=== PATIENT | female | born 1955 | race Caucasian/White ===

== ENCOUNTER 2021-07-03 15:16 | Inpatient (IN) | payer SELFPAY ==
[2021-07-03] VITALS (14 sets, daily range): BP systolic 78–103; BP diastolic 55–75; PULSE 61–159; RESP 17–37; TEMP 36.3; O2SAT 94–98; BMI 25.5
--- NOTE | 2021-07-03 15:54 | ECG_ITS ---
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: : 1955 Requested By: Placido Obregon Order Number: [id number] Reading MD: VIOLETA CARTWRIGHT Measurements Intervals [place] Rate: 126 P: 7 [place]: 129 QRS: 21 QRSD: 92 T: 11 QT: 313 QTc: 453 Interpretive Statements SINUS TACHYCARDIA ST ELEVATION, CONSIDER ANTERIOR INJURY [MARKED ST ELEVATION W/O NORMALLY INFLECTED T-WAVE IN V2-V5] ST ELEVATION, CONSIDER INFERIOR INJURY [MARKED ST ELEVATION W/O NORMALLY INFLECTED T-WAVE IN II/aVF] ACUTE VT No previous ECG available for comparison Electronically Signed On 07-03-2021 19:57:22 SUPERVISOR ELECTRONICS INSPECTION by VIOLETA CARTWRIGHT [id number]
[2021-07-03] MEDS: aspirin 81 mg Chew Tablet 324 MG PO (16:09)
[2021-07-03 16:10] LABS: Basophils # 0.1 10^3/uL (0.0-0.1); Basophils % 0.3 %; Eosinophils % 0.2 %; Hematocrit 41.3 % (37.0-47.0); Hemoglobin 14.2 g/dL (11.5-15.3); Mean Corpuscular HGB Conc 34.4 g/dL (30.0-36.0); Mean Corpuscular Hemoglobin 30.1 pg (28.0-34.0); Mean Corpuscular Volume 87.7 fl (81-99); Monocytes # 0.6 10^3/uL (0.2-0.9); Monocytes % 2.8 %; Neutrophils # 17.54 10^3/uL (1.8-7.7); Neutrophils % 89.3 %; Nucleated Red Blood Cells % 0 %; Platelet Count 155 10^3/cmm (130-400); Red Blood Count 4.71 10^6/uL (4.1-5.3); Red Cell Distribution Width 12.7 % (12.1-15.1); White Blood Count 19.7 10^3/uL (4.0-10.0)
[2021-07-03] MEDS: morphine 4 mg/mL SDV 1 mL IVP ×2 (16:10→16:46)
[2021-07-03] MEDS: ticagrelor 90 mg Tablet 180 MG PO (16:10)
[2021-07-03] MEDS: heparin 5,000 unit/mL INJ 1 mL 4000 UNIT IVP (16:10)
--- NOTE | 2021-07-03 16:10 | XACV_ITS ---
Gender: Female : 1955 Any Known Allergies: No known allergies Exam Priority: Routine Procedure(s): Procedure Description: Diagnostic procedure Procedure Description: Coronary Angiography Diagnostic Cath Status: Emergency Diagnostic Findings * Indication: 66-year-old woman presented with not feeling well for 3 days. Had a febrile episode about 3 days ago also. Complaining of chest pain which is substernal. Borderline ST elevations are noted on the EKG. She is not a good historian, however given her chest pain history and ST changes on EKG, she was emergently brought to the Order Taker for coronary angiogram. * No disease noted in the Left Main, Left Anterior Descending, Right, or Circumflex coronary arteries. * Coronary angiography shows right dominance. Conclusions 1. Possible pericarditis/sepsis. Will need work-up for it. 2. No disease noted in the Left Main, Left Anterior Descending, Right, or Circumflex coronary arteries. Recommendations * Transfer to CSU. * Tele monitoring. * Work up for pericarditis vs sepsis per medicine team. * Order echocardiogram. Interventional RX Recommendation: medical therapy and/or counseling Diagnostic RX Recommendation: medical therapy and/or counseling Pressures Phase:Rest AO : 76 / 44 ( 55 ) @ 2:57:00 PM 79 / 38 ( 53 ) @ 2:57:00 PM 67 / 30 ( 45 ) @ 2:57:00 PM LV : 94 / -16 / 5 @ 2:57:00 PM 93 / -16 / 5 @ 2:57:00 PM Valves Phase:DefaultPhase AV : 17.0 @ 5:09:16 PM AV Mean Gradient: 15.0 @ 5:09:16 PM Clinical Evaluation EBL: 5mL-10mL Procedural Details Procedure Consent Obtained. Admit Source: Emergency department. Pre-Procedure Time Out. Identified patient by full name and date of as verbalized by the patient/guarantor. Does the consent match the physician's order: Yes. Accurate & Complete Informed Consent: Yes. Inpatient/Outpatient History & Physical on Chart: Yes. Visualize and Verify Site with Patient/Guarantor: N/A. Relevant Radiology Images available: N/A. Pre-op teaching completed and patient verbalized understanding. The risks, benefits, and alternatives of sedation and/or procedure were discussed by physician. The patient agrees to continue. Procedure started. Order Taker Indications: Worsening Angina, STEMI. [facility] Clinical Fraility Score: 4: Vulnerable. Chest Pain Symptom Assessment: Atypical Angina. Correct patient, site and procedure confirmed by cath team. Current diagnosis: STEMI. PERRLA. Strong, equal hand watch supervisor bilaterally. Lungs clear x 5 lobes. IV Site on Arrival: 20 gauge in the right anticubital. IV Fluids: 0.9% NaCl at KVO. 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 Pre Procedural Pulses: bilateral dorsalis pedis was 2+. Oxygen started at 2liters/min via nasal canula. right groin was prepped with chloroprep then draped in the usual sterile fashion. Physician notified. Baseline sample Acquired. HR: 77 BPM. Physician arrived. Physician scrubbed in. Immediate Pre-Procedure Time Out. Correct Patient: Yes; Correct Procedure: Yes; Correct Site: Yes; Correct Patient Position: Yes; Correct Supplies: Yes; Dried Flammable Prep: N/A; Blood Products Available: N/A;. Lidocaine 1% infiltrated to the right groin. Arterial access obtained with micropuncture set. Wire and needle out. Difficult access to R groin. Approach switched to L groin. Lidocaine 1% infiltrated to the left groin. left groin was prepped with chloroprep then draped in the usual sterile fashion. Arterial access obtained with micropuncture set. A 5 italian JL4 catheter in over wire. Multiple views taken of left coronary artery. Catheter out. A 5 italian JR4 catheter in over wire. Multiple views taken of right coronary artery. EDP Sample taken: LV 94/-17,5; HR: 137 BPM; SpO2: 100%. Pullback taken: LV 93/-17,5; AO 76/44(55); Mean: 15mmHg, Peak to Peak: 17mmHg, SEP: 13sec/min; HR: 138 BPM; SpO2: 100%. A Suture was successful obtaining hemostatsis at the Left Femoral artery insertion site. Physician scrubbed out. Post Procedure: Pulses reassessed and unchanged. PERRLA. Strong, equal hand watch supervisor bilaterally. No VTE prophylaxis required. Medication's Wasted: Lidocaine 1% = 12 mL. Medication's Wasted: Heparin = 1000 u. Medication's Wasted: Other = Versed 1 mg. Medication's Wasted: Other = Fentanyl 100 mcg. Total IV fluids: 250 mL. Post-op diagnosis: Angina. Complications: Non obstructive CAD. Estimated blood loss: 5mL-10mL. Responsiveness - Normal response to verbal stimuli; alert and oriented, PERRLA. Airway - Unaffected, no intervention required; spontaneous ventilation. Circulation: W/N/L, pulses unchanged. Nausea/Vomiting: No. Procedure completed. Patient transferred by bed to 1st floor. Vital chart was stopped. Access Site Site: Left Femoral artery Sheath Size: 6 Fr Hemostasis Method: Suture Hemostasis Success: Successful Procedure Medications Start: 4:46 PM Stop: 4:46 PM Medication: Versed Amount: 1 mg Route: I.V. Start: 4:54 PM Stop: 4:54 PM Medication: 0.9% Saline Amount: 250 ml Route: I.V. bolus I, the attending physician, have reviewed and verified all procedure medications. Yes, all medications given per verbal order Report Signatures Finalized by Toby Howell MD on 07/18/2021 07:16 AM
--- NOTE | 2021-07-03 16:11 | ED_ITS ---
HPI - Chest Pain General: Chief Complaint: Shortness of Breath/Dyspnea Stated Complaint: LETHARGIC/SOB/COUGH/FEVER Time Seen by Provider: 07/03/21 16:11 History of Present Illness: HPI narrative: 66-year-old female sent to the emergency room from the cardiac clinic. She complaining of chest pain evidently has been going on waxing and waning for several days markedly worse today. On arrival here initial EKG showed acute ST elevation [place]. She is complaining of shortness of breath generalized weakness. She previously has a history of cancer MD complaint: chest pain Onset (ago): day(s) Timing of current episode: episodic and increasing Onset: during rest Pain location: substernal and left chest Pain radiation: left arm Severity: severe Quality: aching and heaviness Relieving factors: nothing Exacerbating factors: nothing Associated symptoms: Reports dyspnea, leg edema and sense of impending doom; Deny abdominal pain, diaphoresis, fever(s), nausea, palpitations, syncope or vomiting Treatment prior to arrival: none Review of Systems Const: Denies: fever(s) or diaphoresis ENMT: Denies: throat pain, ear or mastoid pain, nasal discharge or nasal congestion Card: Denies: palpitations or syncope Resp: Reports: dyspnea GI: Denies: abdominal pain, nausea or vomiting : Denies: flank pain, difficulty voiding, dysuria, urinary frequency or urinary urgency Skin/Breast: Denies: rash or pruritus Physical Exam Const: ORIENTATION/CONSCIOUSNESS: Yes awake, Yes oriented to person, Yes oriented to place and Yes oriented to time HENMT: COMMON NORMALS: normocephalic, atraumatic and hearing grossly normal bilaterally HEAD & SCALP: normocephalic and atraumatic Neck/C-Spine: COMMON NORMALS: no JVD Resp: COMMON NORMALS: normal respiratory effort, No retractions, No use of accessory muscles and clear to auscultation bilaterally AUSCULTATION: clear to auscultation bilaterally Cardio: COMMON NORMALS: no JVD, regular rate, regular rhythm and No murmurs present (Cardio) RATE: regular rate RHYTHM: regular rhythm GI: COMMON NORMALS: Soft to palpation and No hepatosplenomegaly present AUSCULTATION: Yes normoactive bowel sounds PALPATION: Yes Soft to palpation, No Tenderness to palpation present (GI), No Guarding due to palpation present (GI) and Yes No hepatosplenomegaly present Extremity: COMMON NORMALS: normal to inspection, capillary refill normal, no clubbing, cyanosis or edema, no calf tenderness and no pedal edema Neuro: SENSORIUM/ORIENTATION: Yes oriented to person, Yes oriented to place and Yes oriented to time Skin: COMMON NORMALS: no rashes or lesions noted GENERAL SKIN EXAM: no rashes or lesions noted Course Vital Signs: Vital signs: Vital Signs Temperature 97.4 F L 07/03/21 15:37 Pulse Rate 131 H 07/03/21 21:25 Respiratory Rate 22 H 07/03/21 21:25 Blood Pressure 102/75 07/03/21 19:00 Pulse Oximetry 94 07/03/21 21:25 MDM - Chest Pain MDM Narrative: Medical decision making narrative: Initial EKG shows acute ST elevation discussed Dr. Cordero who is on the department he agrees he is interviewed the patient he feels her chest pain is worsening and able to go ahead and take her to Program Director/Air Personality she has been given antiplatelet therapy aspirin and heparin. Lab Data: Labs: Lab Results 07/03/21 07/03/21 07/03/21 16:00 16:00 16:00 WBC 19.7 10^3/uL H 10 ^3/uL (4.0-10.0) RBC 4.71 10^6/uL 10^6 /uL (4.1-5.3) Hgb 14.2 g/dL g/dL (11.5-15.3) Hct 41.3 % % (37.0-47.0) MCV 87.7 fl fl (81-99) MCH 30.1 pg pg (28.0-34.0) MCHC 34.4 g/dL g/dL (30.0-36.0) RDW 12.7 % % (12.1-15.1) Plt Count 155 10^3/cmm 10^3 /cmm (130-400) MPV 13.7 fL H fL (7.4-10.4) Neut % (Auto) 89.3 % % Lymph % (Auto) 5.0 % % [place] % (Auto) 2.8 % % Eos % (Auto) 0.2 % % Baso % (Auto) 0.3 % % Neut # (Auto) 17.54 10^3/uL H 1 0^3/uL (1.8-7.7) Lymph # (Auto) 1.0 10^3/uL 10^3/ uL (0.8-4.8) [place] # (Auto) 0.6 10^3/uL 10^3/ uL (0.2-0.9) Eos # (Auto) 0.0 10^3/uL 10^3/ uL (0.0-0.8) Baso # (Auto) 0.1 10^3/uL 10^3/ uL (0.0-0.1) Nucleated RBC % (a uto) 0 % % Nucleated RBCs # 0.0 /100WBC /100W BC Sodium 125 mmol/L L mmol /L (136-145) Potassium 4.0 mmol/L mmol/L (3.5-5.1) Chloride 88 mmol/L L mmol/ L (98-107) Carbon Dioxide 12 mmol/L L mmol/ L (22-29) Anion Gap 29.0 H (5-19) BUN 84 mg/dL H* mg/dL (8-23) Creatinine 2.1 mg/dL H mg/dL (0.5-0.9) GFR Calculation 23.7 mL/min L mL/ min (90-130) Glucose 105 mg/dL mg/dL (65-115) Calculated Osmolal ity 286 mOsm/kg mOsm/ kg (285-295) Calcium 7.9 mg/dL L mg/dL (8.5-10.5) Total Bilirubin 0.5 mg/dL mg/dL (0.15-1.2) AST 35 U/L H U/L (0-32) ALT 11 U/L U/L (0-33) Alkaline Phosphata se 95 IU/L IU/L (35-105) Troponin T Baselin e 55 ng/L H ng/L (0-10) Total Protein 6.9 g/dL g/dL (6.6-8.7) Albumin 2.8 g/dL L g/dL (3.5-5.2) Globulin 4.1 g/dL g/dL (1.3-4.6) Procalcitonin 07/03/21 16:00 WBC RBC Hgb Hct MCV MCH MCHC RDW Plt Count MPV Neut % (Auto) Lymph % (Auto) [place] % (Auto) Eos % (Auto) Baso % (Auto) Neut # (Auto) Lymph # (Auto) [place] # (Auto) Eos # (Auto) Baso # (Auto) Nucleated RBC % (a uto) Nucleated RBCs # Sodium Potassium Chloride Carbon Dioxide Anion Gap BUN Creatinine GFR Calculation Glucose Calculated Osmolal ity Calcium Total Bilirubin AST ALT Alkaline Phosphata se Troponin T Baselin e Total Protein Albumin Globulin Procalcitonin 9.36 ng/mL H ng/m L (0-0.5) Discharge Plan Discharge Patient Disposition: Admitted As Inpatient Admit Provider: Toby Howell Clinical Impression: ST elevation (STEMI) myocardial infarction Condition: Stable Coding Level of Care Code ED Spool Winder for [place] Fwd Exam Comprehensive
[2021-07-03 16:16] LABS: Mean Platelet Volume 13.7 fL (7.4-10.4)
--- NOTE | 2021-07-03 16:32 | PC.PHAR ---
pt and pts daughter verified pts medications
[2021-07-03 16:44] LABS: Alanine Aminotransferase 11 U/L (0-33); Albumin Level 2.8 g/dL (3.5-5.2); Alkaline Phosphatase 95 IU/L (35-105); Calcium 7.9 mg/dL (8.5-10.5); Carbon Dioxide 12 mmol/L (22-29); Chloride 88 mmol/L (98-107); Globulin 4.1 g/dL (1.3-4.6); Glomerular Filtration Rate 23.7 mL/min (90-130); Glucose 105 mg/dL (65-115); Osmolality Calculated 286 mOsm/kg (285-295); Sodium 125 mmol/L (136-145); Total Bilirubin 0.5 mg/dL (0.15-1.2); Total Protein 6.9 g/dL (6.6-8.7)
[2021-07-03 16:47] LABS: Aspartate Amino Transferase 35 U/L (0-32); Blood Urea Nitrogen 84 mg/dL (8-23)
--- NOTE | 2021-07-03 16:47 | PC.NURSE ---
Patient only received 2mg of Morphine, other 2mg morphine wasted in sharps container with Paul Roblero RN
--- NOTE | 2021-07-03 17:13 | PM.CONSULT ---
Providers/Reason For Consult Consulting Physician/Specialty*: Toby Howell MD/ Cardiology Reason for Consult*: STEMI Requesting Physician: Dr Tesfaye Attending Physician: Toby Howell M.D History of Present Illness History of Present Illness Jessica Del Rosario is a 66 year old female with no significant prior cardiac history has presented with 2 to 3 days of on and off chest pain. It got worse today. It was associated with cough. She also had a fever of 2 days ago. EKG shows borderline ST elevation in inferior and lateral leads. STEMI was activated. Emergent cardiac catheterization was performed that does not show significant coronary artery disease. Her labs show elevated WBC count. She is tachycardic. Review of Systems Const: Denies: fever(s) or diaphoresis ENMT: Denies: throat pain, ear or mastoid pain, nasal discharge or nasal congestion Card: Reports: chest pain; Denies: palpitations or syncope Resp: Reports: dyspnea GI: Denies: abdominal pain, nausea or vomiting : Denies: flank pain, difficulty voiding, dysuria, urinary frequency or urinary urgency Skin/Breast: Denies: rash or pruritus Meds/Allergies Home Medications and Allergies Home Medications Medication Instructions Recorded Confirmed Last Taken Type Vitamin B-12 1 tab PO DAILY 07/03/21 07/03/21 Unknown History albuterol sulfate 2 puff INHALATION QID PRN 07/03/21 07/03/21 Unknown History duloxetine 60 mg PO BID 07/03/21 07/03/21 07/03/21 12:00 History gabapentin 300 mg PO TID 07/03/21 07/03/21 Unknown History omega-3 fatty acids [Fish Oil] 1 cap PO DAILY 07/03/21 07/03/21 Unknown History potassium gluconate 595 mg PO DAILY 07/03/21 07/03/21 Unknown History quetiapine 100 mg PO BEDTIME 07/03/21 07/03/21 07/02/21 History zolpidem 5 mg PO BEDTIME 07/03/21 07/03/21 07/02/21 History zonisamide 100 mg PO BID 07/03/21 07/03/21 07/03/21 12:00 History Allergies Allergy/AdvReac Type Severity Reaction Status Date / Time No Known Allergies Allergy Unverified 07/03/21 16:28 Vitals/I&O/Wt Last Vital Signs Temp 97.4 F L 07/03/21 15:37 Pulse 102 H 07/03/21 16:33 Resp 18 07/03/21 16:46 BP 94/57 07/03/21 16:33 Pulse Ox 98 07/03/21 16:46 Weight last 48 hrs Weight 149 lb Physical Exam Narrative: EXAM NARRATIVE: GENERAL: Patient is alert, awake and oriented x3. [] NECK: No jugular vein distension. [] HEENT: No cyanosis. No icterus. No pallor. [] HEART: Regular S1 and S2. No murmur, rub or gallop. [] LUNGS: Clear to auscultate bilaterally. [] ABDOMEN: Soft, nontender and nondistended. Positive bowel sounds. No guarding, rebound or tenderness. [] CENTRAL NERVOUS SYSTEM: Grossly nonfocal. [] EXTREMITIES: Lower extremities with 1+ edema bilaterally. Pulses palpable in the lower extremities, both dorsalis pedis and posterior tibial. [] A&P Assessment and plan (1) Chest pain: Status: Acute (2) Sepsis: Status: Acute EKG had borderline ST elevations. Emergent cardiac catheterization demonstrates no significant CAD. Her LVEDP is normal. She appears to be in sepsis with elevated WBC count, tachycardia, renal failure. We will transfer care to hospitalist team. Dr. Bob has been consulted and patient discussed with him. Appreciate his recommendations. Order echocardiogram. Thank you for involving us with care of this patient. These call with questions Coding Level of Care Code Acute Optical Systems Engineer for g Fwd Diagnoses Chest pain R07.9 Sepsis A41.9
[2021-07-03 17:14] LABS: Troponin(5th) Baseline 55 ng/L (0-10)
--- NOTE | 2021-07-03 17:15 | XRR_ITS ---
PROCEDURE INFORMATION: Exam: XR Chest Exam date and time: 07/03/2021 5:15 PM Age: 66 years old Clinical indication: Cough; Prior surgery; Surgery date: Post-operative (0-2 days) TECHNIQUE: Imaging protocol: XR of the chest. Views: 1 view. Total images: 1 COMPARISON: No relevant prior studies available. FINDINGS: Tubes, catheters and devices: Right Infus[place] catheter. Lungs: Suspected mild discoid atelectasis left lung base. No other visible evidence of active interstitial or alveolar airspace disease. Pleural spaces: Unremarkable. No pleural effusion. No pneumothorax. Heart/Mediastinum: Cardiomegaly with arteriosclerosis. Bones/joints: Scoliotic curvature of the spine. Degenerative disease. Soft tissues: Findings of suspected status post left mastectomy. XR/XR chest 1V portable [id number] IMPRESSION: Suspected mild discoid atelectasis left lung base.
--- NOTE | 2021-07-03 17:54 | ECG_ITS ---
[facility] Test Date: 2021-07-03 Pat Name: Jessica Del Rosario Department: Room: 111 Gender: Female Investigations Director: : 1955 Requested By: Placido Obregon Order Number: [id number] Reading MD: VIOLETA CARTWRIGHT Measurements Intervals [place] Rate: 66 P: 28 [place]: 152 QRS: 49 QRSD: 109 T: 56 QT: 411 QTc: 432 Interpretive Statements SINUS RHYTHM WITH OCCASIONAL SUPRAVENTRICULAR PREMATURE COMPLEXES ST ELEVATION, CONSIDER LATERAL INJURY [MARKED ST ELEVATION W/O NORMALLY INFLECTED T WAVE IN I/aVL/V5/V6] MARKED ST ELEVATION, CONSIDER INFERIOR INJURY [MARKED ST ELEVATION W/O NORMALLY INFLECTED T WAVE IN II/aVF] ACUTE OR Compared to ECG 07/03/2021 15:40:16 Sinus tachycardia no longer present ST (T wave) deviation still present Myocardial infarct finding still present Electronically Signed On 07-03-2021 20:04:36 HIDE OR SKIN BUFFER by VIOLETA CARTWRIGHT [id number]
[2021-07-03 17:56] LABS: Procalcitonin 9.36 ng/mL (0-0.5)
--- NOTE | 2021-07-03 18:22 | P.CONIM_ITS ---
Providers/Reason For Consult Consulting Physician/Specialty*: Dr. Howell, cardiology Reason for Consult*: HIPOLITO on CKD, hyponatremia, possible pneumonia , possible sepsis Attending Physician: Dr. Howell History of Present Illness History of Present Illness Jessica Del Rosario is a 66 year old female with past medical history of hypertension recently started on antihypertensive medication currently she is not aware of the name of the medicine, chronic smoker history of CA breast, chronic hypokalemia on oral potassium supplement ,was brought in with chief complaint of substernal chest pain, she is complaining of chest pain with exertion, she is also is complaining of chest pain with inspiration she rates the chest pain at 8/10, sharp with no radiation, along with chest pain she is also complaining of cough with scant sputum production , profound weakness, subjective fever, the symptoms have been going on for last several days. She was sent to the emergency room from cardiac clinic, upon arrival in the ER STEMI was called. Initial EKG showed: ST elevation in the inferior leads. She was taken to cardiac cath: Cath report is awaited, but as per discussion with the electric motor assembler and tester, she has nonocclusive coronary artery disease. Further work-up: Pertinent labs: WBC 19.7, H&H:14.2/41, plt : 155, serum sodium 125, serum potassium 4 , serum bicarb:12, BUN / serum creatinine: 84/2.1 , Troponin T baseline:55, 2-hour and 6-hour troponin awaited Procalcitonin:9.36, lactic acid awaited. Review of Systems Const: Denies: change in appetite or diaphoresis Card: Denies: palpitations, edema or swelling of feet/ankles Resp: Denies: wheezing or pain on inspiration GI: Denies: abdominal pain, diarrhea or constipation : Denies: flank pain Musc: Denies: back pain, extremity pain or extremity swelling Neuro: Denies: headache(s), difficulty walking or confusion Meds/Allergies Home Medications and Allergies Home Medications Medication Instructions Recorded Confirmed Last Taken Type Vitamin B-12 1 tab PO DAILY 07/03/21 07/03/21 Unknown History albuterol sulfate 2 puff INHALATION QID PRN 07/03/21 07/03/21 Unknown History duloxetine 60 mg PO BID 07/03/21 07/03/21 07/03/21 12:00 History gabapentin 300 mg PO TID 07/03/21 07/03/21 Unknown History omega-3 fatty acids [Fish Oil] 1 cap PO DAILY 07/03/21 07/03/21 Unknown History potassium gluconate 595 mg PO DAILY 07/03/21 07/03/21 Unknown History quetiapine 100 mg PO BEDTIME 07/03/21 07/03/21 07/02/21 History zolpidem 5 mg PO BEDTIME 07/03/21 07/03/21 07/02/21 History zonisamide 100 mg PO BID 07/03/21 07/03/21 07/03/21 12:00 History Allergies Allergy/AdvReac Type Severity Reaction Status Date / Time No Known Allergies Allergy Unverified 07/03/21 16:28 Vitals/I&O/Wt Last Vital Signs Temp 97.4 F L 07/03/21 15:37 Pulse 102 H 07/03/21 16:33 Resp 18 07/03/21 16:46 BP 94/57 07/03/21 16:33 Pulse Ox 98 07/03/21 16:46 Weight last 48 hrs Weight 67.585 kg Physical Exam Const: COMMON NORMALS: patient oriented x3 HENMT: COMMON NORMALS: normocephalic and atraumatic HEAD & SCALP: normocephalic and atraumatic Chest: CHEST: Yes Symmetrical chest wall rise Resp: COMMON NORMALS: clear to auscultation bilaterally AUSCULTATION: clear to auscultation bilaterally Cardio: COMMON NORMALS: regular rate, regular rhythm, S1 normal heart sound present, S2 normal heart sound present, No gallops present (Cardio), No murmurs present (Cardio), No rub (Cardio) and Peripheral pulses 2+ throughout RATE: regular rate RHYTHM: regular rhythm HEART SOUNDS: S1 normal heart sound present and S2 normal heart sound present PERIPHERAL PULSES: Peripheral pulses 2+ throughout GI: COMMON NORMALS: Normal to inspection, nondistended, normoactive bowel sounds present, Soft to palpation, non-tender, No hepatosplenomegaly present and no masses AUSCULTATION: Yes normoactive bowel sounds PALPATION: Yes Soft to palpation and Yes No hepatosplenomegaly present RECTAL EXAM: deferred Extremity: COMMON NORMALS: no clubbing, cyanosis or edema and no pedal edema Neuro: COMMON NORMALS: patient oriented x3 A&P Assessment and plan (1) Pneumonia: Status: Acute (2) Acute kidney injury superimposed on CKD: Status: Acute (3) Hyponatremia: Status: Acute (4) Chest pain: Status: Acute (5) Hypertension: Status: Acute Additional A&P Information 66 year old female with past medical history of hypertension recently started on antihypertensive medication currently she is not aware of the name of the medicine, chronic smoker history of CA breast, chronic hypokalemia on oral potassium supplement ,was brought in with chief complaint of substernal chest pain, she is complaining of chest pain with exertion, she is also is complaining of chest pain with inspiration she rates the chest pain at 8/10, sharp with no radiation, along with chest pain she is also complaining of cough with scant sputum production , profound weakness, subjective fever, the symptoms have been going on for last several days. #Pneumonia: Elevated procalcitonin: Difficult to interpret given underlying HIPOLITO Lactic acid blood culture Sputum culture Monitor x-ray chest Urine Legionella antigen Urine bacterial antigen panel Rapid Covid antigen negative Patient has received Covid immunization Continue ceftriaxone and azithromycin for now #HIPOLITO on CKD: Likely prerenal secondary to severe dehydration. Urine electrolytes Urinalysis Renal ultrasound Intake output charting Continue IV hydration with NS at the rate of 100 cc an hour Monitor BMP Avoid nephrotoxic Possible renal consult #Chest pain: Is reproducible, cannot rule out possible underlying pericarditis, possibly pleuritic chest pain secondary to pneumonia. Follow 2D echo ESR CRP Continue Tylenol for now, possibly will use steroids if needed, as will have to avoid NSAIDs. #Hypovolemic hyponatremia: Follow serum sodium TSH Cortisol Urine electrolytes Continue IV hydration with normal saline Consult Attestations Medical Necessity Statement: Patient is to be in hospital for management of above defined problems.Anticipated length of stay greater than 2 midnights Coding Level of Care Code Acute Natural Sciences Department Chair for Miah Philip Diagnoses Pneumonia J18.9 Acute kidney injury superimposed on CKD N17.9; N18.9 Hyponatremia E87.1 Chest pain R07.9 Hypertension I10
[2021-07-03] MEDS: cefTRIAXone 1,000 MG in sodium chloride 0.9% (plus) 50 ML 100 MG IV (18:55)
[2021-07-03 19:40] LABS: SARS Covid-2 Antigen Negative (Negative)
[2021-07-03 19:43] LABS: Partial Thromboplastin Time 30.3 SECONDS (23.9-36.7)
[2021-07-03 19:49] LABS: Troponin 5 2HR 47.26 ng/L (0-10)
[2021-07-03 19:51] LABS: Lactic Sepsis W/Reflex 1.7 mmol/L (0.5-2.2)
[2021-07-03 19:53] LABS: Troponin 5 2HR Delta -7.74 ABS# (0-10)
[2021-07-03] MEDS: azithromycin 500 MG in sodium chloride 0.9% 250 ML 250 MG IV (21:42)
[2021-07-03] MEDS: quetiapine 100 mg Tablet PO (21:43)
--- NOTE | 2021-07-03 21:54 | ECG_ITS ---
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 Measurements Intervals Brandon Rate: 89 P: 42 NJ: 108 QRS: 56 QRSD: 109 T: 50 QT: 429 QTc: 524 Interpretive Statements SINUS RHYTHM WITH SHORT NJ INTERVAL POSSIBLE LEFT ATRIAL ENLARGEMENT [-0.1mV P WAVE IN V1/V2] ST ELEVATION, CONSIDER LATERAL AND INFERIOR INJURY POSSIBLE EARLY REPOLARIZATION ACUTE MO Compared to ECG 07/03/2021 18:41:22 Short NJ interval now present ST (T wave) deviation still present Myocardial infarct finding still present Electronically Signed On 07-05-2021 4:19:54 DRAFTER AUTOMOTIVE DESIGN by Ellie Reeder M.D. [id number]
[2021-07-03 22:40] LABS: Anion Gap 23.9 (5-19); Calcium 7.4 mg/dL (8.5-10.5); Carbon Dioxide 12 mmol/L (22-29); Chloride 94 mmol/L (98-107); Glomerular Filtration Rate 32.5 mL/min (90-130); Glucose 86 mg/dL (65-115); Osmolality Calculated 288 mOsm/kg (285-295); Sodium 127 mmol/L (136-145)
[2021-07-03 22:44] LABS: Blood Urea Nitrogen 83 mg/dL (8-23); Potassium 2.9 mmol/L (3.5-5.1)
[2021-07-03 22:52] LABS: Glucose Point of Care 85 mg/dL (70-110)
[2021-07-04] VITALS (38 sets, daily range): BP systolic 81–121; BP diastolic 39–99; PULSE 61–156; RESP 15–35; TEMP 36.4–37.7; O2SAT 90–100
[2021-07-04] MEDS: potassium chloride ER 20 mEq Tablet 40 MEQ PO (00:10)
[2021-07-04] MEDS: sodium chloride 0.9% 1,000 ML 100 ML IV (00:22)
[2021-07-04 06:12] LABS: Glucose Point of Care 84 mg/dL (70-110)
--- NOTE | 2021-07-04 06:13 | P.PNCC_ITS ---
Critical Care Event Note Critical Care Event The high probability of a clinically significant, sudden or life threatening deterioration of the patient's cardiovascular system(s) required my full and direct attention, intervention and personal management. The critical care time is as shown. This time is in addition to time spent performing any reported procedures but includes the following: [x] Data and vital sign review and interpretation [x] Patient assessment, examination and intervention [x] Documentation [x] Medication orders and management Patient with heart rate into the 180s to 190s with associated hypotension and complaints of chest pain. Patient underwent arteriogram last evening. By repo rt I have been told that it did not show any abnormalities necessitating intervention although I do not have the official report. She presented with a STEMI that led to the cath report being done. Procalcitonin admission was elevated at 9, white blood count was elevated. She was treated with Rocephin and azithromycin for pneumonia. Electrolytes were replaced last evening. Morning labs are pending. Patient initially was asymptomatic but then began having chest pain. Pressure was as low as 70 systolic. At time of my arrival, patient's heart rate was in the 140s to 150s, systolic pressure 88. Maintaining oxygen saturations. She was complaining of substernal chest pain similar to what she had last evening. On current examination lungs are clear, she has a tachycardic irregular rhythm, capillary refill is around 3 seconds but no mottling is noted. I have ordered stat lactic acid level, fluid bolus. Pressors have also been ordered. Blood cultures were collected last evening and as noted she has been on antibiotics already. When blood pressures come up a bit more we will give her some beta-blockade and see if we can slow her heart rate down. We will hold Seroquel. Critical Care Time Critical Care Time: Code activated: No Critical Care Time (min): 35 Coding Level of Care Code Acute Entertainment Director for Miah Philip
--- NOTE | 2021-07-04 06:28 | PC.NURSE ---
Addendum entered by Chiquita Abbasi RN 07/04/21 08:44: 2111: PTT 90.3. Pulled sheath to patients Left groin. Held pressure 20 min. No drainage or hematoma. Applied 4x4 gauze and transparent dressing. Vitals stable. Patient tolerated well. Original Note: Around 0530: Patient in Afib sustaining in the 130s to 170s. Notified , Aerospace Quality Engineer. Orders received to call Dr. Livingston Hospitalist. Orders received. Miki to put in orders. Around 0600: Patient c/o dull, aching substernal chest pain. Dr. Livingston notified.
[2021-07-04] MEDS: metoprolol tartrate 1 mg/1 mL SDV 5 mL 2.5 MG IVP (06:58)
[2021-07-04 07:14] LABS: Basophils % 0.3 %; Eosinophils % 0.2 %; Hematocrit 35.9 % (37.0-47.0); Hemoglobin 12.3 g/dL (11.5-15.3); Lymphocytes # 0.6 10^3/uL (0.8-4.8); Lymphocytes % 5.6 %; Mean Corpuscular HGB Conc 34.3 g/dL (30.0-36.0); Mean Corpuscular Hemoglobin 29.6 pg (28.0-34.0); Mean Corpuscular Volume 86.5 fl (81-99); Monocytes # 0.3 10^3/uL (0.2-0.9); Monocytes % 2.4 %; Neutrophils # 10.12 10^3/uL (1.8-7.7); Neutrophils % 90.7 %; Nucleated Red Blood Cells % 0 %; Platelet Count 150 10^3/cmm (130-400); Red Blood Count 4.15 10^6/uL (4.1-5.3); Red Cell Distribution Width 12.7 % (12.1-15.1); White Blood Count 11.2 10^3/uL (4.0-10.0)
[2021-07-04 07:31] LABS: Lactic Sepsis W/Reflex 1.3 mmol/L (0.5-2.2)
[2021-07-04 07:34] LABS: C Reactive Protein 0.4 mg/L (0.0-4.9)
[2021-07-04 07:35] LABS: Alanine Aminotransferase 7 U/L (0-33); Albumin Level 2.2 g/dL (3.5-5.2); Alkaline Phosphatase 64 IU/L (35-105); Anion Gap 23.8 (5-19); Aspartate Amino Transferase 17 U/L (0-32); Blood Urea Nitrogen 70 mg/dL (8-23); Calcium 7.1 mg/dL (8.5-10.5); Carbon Dioxide 12 mmol/L (22-29); Chloride 100 mmol/L (98-107); Globulin 3.8 g/dL (1.3-4.6); Glomerular Filtration Rate 37.9 mL/min (90-130); Glucose 83 mg/dL (65-115); Magnesium 2.1 mg/dL (1.7-2.3); Osmolality Calculated 294 mOsm/kg (285-295); Phosphorus 3.6 mg/dL (2.5-4.5); Potassium 3.8 mmol/L (3.5-5.1); Sodium 132 mmol/L (136-145); Total Bilirubin 0.4 mg/dL (0.15-1.2)
[2021-07-04 07:45] LABS: Procalcitonin 5.83 ng/mL (0-0.5)
--- NOTE | 2021-07-04 08:14 | XR_ITS ---
WS: [id number] Exam: XR chest 1V portable [id number] Date/Time of Exam: 07/04/2021 8:14 AM Reason For Exam: sob Comparison 07/03/2021. Mild plaque atelectasis left lung base unchanged. No acute infiltrates. Mild cardiac enlargement unch anged. No pleural effusions. The mediastinum and osseous thorax are unremarkable. A right-sided port appears to end at the cavoatrial junction. Surgical clips noted in the left chest and left axilla. Mo nitoring leads superimpose the chest. XR/XR chest 1V portable [id number] IMPRESSION: 1. Mild plaque atelectasis in the left lower lobe. Mild cardiac enlargement. 2. No acute process and no change.
[2021-07-04 08:18] LABS: Urine Appearance Clear (CLEAR); Urine Color Yellow (Yellow); pH Urine 5 (5-7)
[2021-07-04 08:19] LABS: Add Urine Microscopic? YES; Bilirubin Urine Neg (Negative); Blood Urine Neg (Negative); Glucose Urine UA Norm (Normal); Ketones Urine Negative (Negative); Leukocyte Esterase Urine Negative (Negative); Nitrate Urine Positive (Negative); Protein Urine Neg (Negative); Specific Gravity, Urine 1.015 (1.005-1.030); Urobilinogen Urine Norm (Negative)
[2021-07-04 08:36] LABS: Add Urine Culture? Yes; Bacteria Urine 1+ /hpf; Squamous Epithelial Cell Urine 0-4 /hpf (0-5); WBC Urine 55-80 /hpf (0-5)
[2021-07-04] MEDS: enoxaparin 60 mg/0.6 mL Syringe SUBCUT (09:07)
[2021-07-04] MEDS: FUROsemide 10 mg/mL SDV 2mL 20 MG IVP (09:08)
[2021-07-04] MEDS: cyanocobalamin 1,000 mcg Tablet 1000 MCG PO (09:08)
[2021-07-04] MEDS: duloxetine 60 mg Capsule PO ×2 (09:08→17:54)
[2021-07-04] MEDS: gabapentin 300 mg Capsule PO ×2 (09:08→17:54)
--- NOTE | 2021-07-04 10:06 | PC.CHAP ---
Pastoral Care Encounter/Spiritual Assessment Type of Contact [] Declined real estate office manager visit [] Patient/Family/Request visit [] Outpatient visit [] Follow-up visit [] Physician referral [] Code/Alert [x] Routine visit [] Staff referral [] Actively dying [] Patient sleeping [] Family support [] [] Out of room [] Palliative care [] [] Receiving care in room [] Pre-surgical visit [] Trauma [] Long length of stay [] ICU visit [x] Other: moving to ICU Relational/Emotional Strength [] Patient feels connected with others/family/visitors/staff [] Distress [] Loneliness/isolation [] Abandonment Spirituality of Patient [] Person of Jill [] Attends Denominational of their Jill [] Believes in Prayer [] Reads Bible or Jewish materials [] There are Spiritual issues to be addressed Weed Cooking Operator Interventions [x] Prayer [] Active listening [] Non-anxious presence [] Spiritual/emotional support [] Crisis/trauma care [] Spiritual counseling [] Bereavement support [] Provided bereavement packet [] Provided Bible/devotional materials [] Provided toy/stuffed animal, coloring book to patient or family member [] Provided Communion [] Anointing/[place] [] Salvation [x Completed spiritual assessment [] Other: Impact on Illness or Injury [] Angry [] Fearful [] Anxious [] Often cries [] Exhaustion [] Unable to work [] Unable to attend christianity [] Unable to walk/stand [] Unable to read [] Unable to drive [] Unable to eat/drink [] Unable to sleep [] Unable to be with family [] Patient intubated [] Other: Summary Time spent with patient
--- NOTE | 2021-07-04 10:32 | PC.NURSE ---
at change of shift pt's heart rate was in 160's..appeared afib with rvr but difficult to discern bt svt.pt awake and alert.levophed to support bp at 8mcgs.ns bolus infusing.pt was on room air and saturating high 90's.metals sales representative rn gave 2.5 mg metoprolol at appox 0730.at approx 0800..pt's bp shot up to 140's syst.levophed drip dc'd.hr slowed to 120's and p waves noted. pt c/o sob.iv bolus stopped.o2 sats in 80's...pcxr obtained.dr youngblood contacted and came to bedside.attempt abg..but unable to obtain.pt placed on bipap at 50% fio2.20 mg lasix given ivp as ordered at 0815.steele catheter place at 0825.o2 sats increased to high 90's.transferred to icu.report given to deyanira stewart
[2021-07-04 10:34] LABS: ABG PCO2 18.4 mmHg (35-45); ABG PH Result 7.42 (7.35-7.45); Alveolar-Arterial Oxygen Gradi 15.2 mmHg (5-10); Arterial Blood Gas Hematocrit 40.8 % (37-47); Base Excess ABG -10.1 mmol/L (-2.0-2.0); Blood Gas Allen Test Pos; Blood Gas Operator Identificat CAK; Blood Gas Sample Site Brachial, left; Blood Gas Sample Type Arterial; Carboxyhemoglobin < 0.0 %THgb (0.4-20.1); HCO3 ABG 11.9 mmol/L (22-26); HGB O2 Sat 96.6 % (95-100); Ionized Calcium Level - ABG 1.1 mmol/L (1.1-1.4); Oxygen Device NC; Oxygen Saturation ABG 97.1; Potassium Level - ABG 3.7 mmol/L (3.5-5.0); Total Hemoglobin 13.3 g/dL (12-16)
[2021-07-04] MEDS: zonisamide 100 MG Capsule PO ×2 (10:36→17:54)
--- NOTE | 2021-07-04 10:37 | USCV_ITS ---
Jessica Del Rosario Age: 66 Gender: F : 1955 Exam Date: 07/04/2021 11:20 Ordering Phys: Aroldo Bob MD Technologist: JUDAH [place]am Location[place] [facility] [place]ication: SINUS TACHYCARDIA HISTORY: Severe sinus tachycaria, up to 169bpm PROCEDURES: The venous duplex Doppler examination of both lower extremities was performed in the standard fashion. The following venous structures were evaluated: common femoral vein, profunda vein, proximal portion of the greater saphenous vein, superficial femoral vein, and the popliteal vein. In addition, the posterior tibial and peroneal trunk were evaluated. Bilaterally, the common femoral, superficial femoral, profunda femoral, popliteal, posterior tibial, greater saphenous veins, and the peroneal trunk were identified and interrogated in the standard fashion. These veins were found to be easily compressible with spontaneous blood flow. Serial compression, augmentation maneuvers, and spectral Doppler flow evaluation were performed. FINDINGS: The veins were found to be easily compressible with spontaneous blood flow. Some pulsatile flow was noted in the femoral vein CONCLUSIONS No evidence of DVT in the above-mentioned identifiable veins. Some features of high venous pressure Dr Patito Pablo MD [facility] (Electronically Signed) Final Date: 06 July 2021 14:10 S
--- NOTE | 2021-07-04 10:37 | PC.CHAP ---
Pastoral Care Encounter/Spiritual Assessment Type of Contact [] Declined qa automation engineer visit [] Patient/Family/Request visit [] Outpatient visit [] Follow-up visit [] Physician referral [] Code/Alert [x] Routine visit [] Staff referral [] Actively dying [] Patient sleeping [] Family support [] [] Out of room [] Palliative care [] [] Receiving care in room [] Pre-surgical visit [] Trauma [] Long length of stay [x] ICU visit [x] Other: just moved in from Cardiac stepdown Relational/Emotional Strength [] Patient feels connected with others/family/visitors/staff [] Distress [] Loneliness/isolation [] Abandonment Spirituality of Patient [] Person of Jill [] Attends Yazidism of their Jill [] Believes in Prayer [] Reads Bible or Spiritism materials [] There are Spiritual issues to be addressed Recovery Manager Interventions [] Prayer [] Active listening [] Non-anxious presence [] Spiritual/emotional support [] Crisis/trauma care [] Spiritual counseling [] Bereavement support [] Provided bereavement packet [] Provided Bible/devotional materials [] Provided toy/stuffed animal, coloring book to patient or family member [] Provided Communion [] Anointing/[place] [] Salvation [x] Completed spiritual assessment [] Other: Impact on Illness or Injury [] Angry [] Fearful [] Anxious [] Often cries [] Exhaustion [] Unable to work [] Unable to attend hindu [] Unable to walk/stand [] Unable to read [] Unable to drive [] Unable to eat/drink [] Unable to sleep [] Unable to be with family [] Patient intubated [] Other: Summary Time spent with patient
--- NOTE | 2021-07-04 10:40 | ECG_ITS ---
[facility] Test Date: 2021-07-04 Pat Name: Jessica Del Rosario Department: Room: [facility] Gender: Female Medical Records Director: : 1955 Requested By: Aroldo Bob Order Number: [id number] Ankit MD: Ellie Reeder M.D. Measurements Intervals [place] Rate: 153 P: NJ: QRS: 66 QRSD: 98 T: 42 QT: 289 QTc: 461 Interpretive Statements ATRIAL FIBRILLATION WITH RAPID VENTRICULAR RESPONSE Compared to ECG 07/03/2021 23:56:30 Sinus rhythm no longer present Short NJ interval no longer present ST (T wave) deviation no longer present Myocardial infarct finding no longer present Electronically Signed On 07-05-2021 4:17:09 TARIFF COMPILING CLERK by Ellie Reeder M.D. [id number]
--- NOTE | 2021-07-04 10:53 | PC.NURSE ---
Patient refused pain medication.
[2021-07-04] MEDS: sodium chloride 0.9% 1,000 ML 75 ML IV (12:21)
--- NOTE | 2021-07-04 12:31 | XACV_ITS ---
Exam Room: [facility] Ht: 165 cm Wt: 68 kg BSA: 1.77 m2 Gender: Female : 1955 Any Known Allergies: No known allergies Exam Priority: Routine Procedure(s): Procedure Description: Pericardiocentesis Procedure Description: Miscellaneous Interventional Findings * Procedure detail: Patient was draped. After obtaining the subxiphoid echo images, we proceeded with a pericardiocentesis with the pericardiocentesis kit needle under fluoroscopy and echo guidance. Position of needle in the pericardial space was confirmed with saline bubbles. A 0.035 guidewire was advanced into pericardial space. We then advanced a 5 Beninese pigtail catheter into the pericardial space and 500 cc of sanguinous fluid was drained. Drainage bag was then attached with the drain and drain was sutured in place. * INDICATION: Patient has large pericardial fluid on echocardiogram with signs of early tamponade. Conclusions 1. Large sized pericardial effusion noted status post drainage of sanguinous fluid. Pericardial drain sutured in place.. Recommendations * Transferred back to ICU. * Fluid sent for analysis to the lab. Follow results. * Drain fluid through the drain every 4 hours. Pressures Phase:Rest AO : / ( 16 ) @ 10:51:00 AM Procedural Details Procedure Consent Obtained. Pre-Procedure Time Out. Identified patient by full name and date of as verbalized by the patient/guarantor. Does the consent match the physician's order: Yes. Accurate & Complete Informed Consent: Yes. Relevant Radiology Images available: Yes. Pre-op teaching completed and patient verbalized understanding. The risks, benefits, and alternatives of sedation and/or procedure were discussed by physician. The patient agrees to continue. Procedure started. PERRLA. Strong, equal hand advertising agent bilaterally. Lungs clear x 5 lobes. IV Fluids: 0.9% NaCl at KVO. 0 mL infused prior to laboratory manager. Oxygen started at 2liters/min via nasal canula. bilateral subclavian region was prepped with chloroprep then draped in the usual sterile fashion. Physician notified. Visualize and Verify Site with Patient/Guarantor: N/A. Baseline sample Acquired. HR: 117 BPM. Ultrasound here to assist with procedure. Physician arrived. Lidocaine 1% infiltrated to Right subclavian area. pericardial centesis performed with us guidance. 376ml of fluid removed. drain placed and sutured in. medial chest dressed per physician order. PERRLA. Strong, equal hand advertising agent bilaterally. No VTE prophylaxis required. Medication's Wasted: Lidocaine 1% = 5 mL. Medication's Wasted: Other = fentanyl 50 mcg. Medication's Wasted: Other = versed 0.5 mg. Total IV fluids: 75 mL. Complications: none. Responsiveness - Normal response to verbal stimuli; alert and oriented, PERRLA. Airway - Unaffected, no intervention required; spontaneous ventilation. Circulation: W/N/L, pulses unchanged. Nausea/Vomiting: No. Procedure completed. Patient transferred by bed to ICU. Vital chart was stopped. Procedure Medications Start: 12:44 PM Stop: 12:44 PM Medication: 0.9% Saline Amount: 75 ml/hr Route: I.V. drip Start: 12:45 PM Stop: 12:45 PM Medication: Levophed (norepinephrine) Amount: 8 mcg/min Route: I.V. drip Start: 12:52 PM Stop: 12:52 PM Medication: Versed Amount: 0.5 mg Route: I.V. Start: 1:02 PM Stop: 1:02 PM Medication: Fentanyl Amount: 12.5 mcg Route: I.V. Start: 1:19 PM Stop: 1:19 PM Medication: Fentanyl Amount: 12.5 mcg Route: I.V. I, the attending physician, have reviewed and verified all procedure medications. Yes, all medications given per verbal order Report Signatures Finalized by Toby Howell MD on 07/09/2021 04:44 PM
[2021-07-04 13:53] LABS: Mononuclear #, Pericardial Fl 5.812 10^3/uL; RBC Pericardial Fluid 103 10^3/uL; WBC Pericardial Fluid 94052 /uL
--- NOTE | 2021-07-04 13:53 | USCV_ITS ---
Jessica Del Rosario Age: 66 Gender: F : 1955 Exam Date: 07/04/2021 14:19 Ordering Phys: Toby Howell M.D ([email or web address]) Technologist: Niles Wright Exam Location: [facility] [place] Indication: pericardial effusion BP: / HR: Rhythm: Sinus Technical Quality: Adequate MEASUREMENTS (Male / Female) Normal Values FINDINGS Left Ventricle Right Ventricle Right Atrium Left Atrium Mitral Valve Aortic Valve Tricuspid Valve Pulmonic Valve Pericardium Aorta CONCLUSIONS This is a limited echocardiogram performed after pericardiocentesis. Amount of pericardial effusion appears to have been significantly reduced. No ventricular or atrial collapse noted. Toby Howell MD (Electronically Signed) Final Date: 08 July 2021 20:10 S
[2021-07-04 14:03] LABS: Pericardial Fluid Appearance Bloody (Clear); Pericardial Fluid Color Red (Pale Yellow)
--- NOTE | 2021-07-04 14:05 | P.PN_ITS ---
Subjective Subjective: Interval history: Patient feeling better after pericardiocentesis. During the morning patient became hypotensive and was significantly tachycardic. Heart rates were in the 140s. Echocardiogram showed large sized pericardial effusion with signs of early tamponade. She was emergently taken to the cardiac Mixing Tank Operator and pericardiocentesis was performed. Draining 500 cc of bloody effusion. Drain was left in place. Vitals/I&O/Wt Last Vital Signs Temp 97.6 F 07/04/21 11:02 Pulse 106 H 07/04/21 11:02 Resp 33 H 07/04/21 11:02 BP 102/65 07/04/21 11:02 Pulse Ox 99 07/04/21 11:02 07/03/21 07/04/21 07/04/21 22:59 06:59 14:59 Intake Total 507.112 / 298.417 6577.888 / 1496.888 Output Total 800 / 800 Balance -292.888 / -199.768 7203.888 / 1496.888 Weight last 48 hrs Weight 141 lb 6.4 oz Weight 149 lb Physical Exam Narrative: EXAM NARRATIVE: GENERAL: Patient is drowsy NECK: No jugular vein distension. [] HEENT: No cyanosis. No icterus. No pallor. [] HEART: Tachycardic, regular S1 and S2. No murmur, rub or gallop. [] LUNGS: Clear to auscultate bilaterally. [] ABDOMEN: Soft, nontender and nondistended. Positive bowel sounds. No guarding, rebound or tenderness. [] CENTRAL NERVOUS SYSTEM: Grossly nonfocal. [] EXTREMITIES: Lower extremities with 1+ edema bilaterally. Pulses palpable in the lower extremities, both dorsalis pedis and posterior tibial. [] Data : 07/05/21 04:36 07/05/21 04:36 Micro: Microbiology 07/04/21 04:30 MRSA Culture - Final Nose 07/04/21 04:30 Bacterial Antigens - Final Urine,Voided 07/04/21 04:30 Legionella Urinary Antigen - Final Urine,Voided 07/03/21 19:06 Blood Culture - Preliminary Blood SPECIMEN COLLECTED 07/03/21 19:06 Blood Culture - Preliminary Blood SPECIMEN COLLECTED A&P Assessment and plan (1) Chest pain: Status: Acute (2) Sepsis: Status: Acute (3) Pericardial effusion: Status: Acute (4) Hypertension: Status: Acute Patient is found to have large sized pericardial effusion on echoca rdiogram. Signs of early tamponade. She was emergently taken to the cardiac Mixing Tank Operator where pericardiocentesis was performed and 500 cc of bloody effusion was drained. Pericardial drain was left in place. Likely etiology is pericarditis given EKG changes and chest pain symptoms. We will start her on high-dose aspirin 650 mg 3 times daily. Pericarditis could be uremic/malignant. Empiric antibiotic therapy to continue per hospitalist team Thank you for involving us with care of this patient. We will continue to follow. Please call with questions Attestations Medical Necessity Statement*: Care expected to cross 2 midnights. Patient with large pericardial effusion that underwent drainage today and drain is left in place. Coding Level of Care Code Acute Pluck Separator for Miah Philip Diagnoses Chest pain R07.9 Sepsis A41.9 Pericardial effusion I31.3 Hypertension I10
--- NOTE | 2021-07-04 14:05 | W.PM.OPSUD ---
Surgery/Procedure H&P Update DATE OF PROCEDURE: July 04, 2021 DATE H&P PERFORMED: 07/03/21 PREOP DIAGNOSIS: Large pericardial effusion/early tamponade PRIMARY INDICATION FOR PROCEDURE: Large pericardial effusion/eartly tamponade PLANNED PROCEDURE: Operation Date: 07/04/21 Proposed Procedures Pericardiocentesis PATIENT REASSESSED PRIOR TO SEDATION, WITH NO CHANGE NOTED: Yes PHYSICAL EXAM: alert, oriented x 3, clear to auscultation bilaterally and regular rate & rhythm (Tachycardia) AIRWAY EVAL/ANESTHESIA PLAN: ASA IV, Monitored Anesthesia, Local Anesthesia, Risks, benefits & alternatives of sedation and/or procedure discussed and Patient agrees to continue as planned
--- NOTE | 2021-07-04 15:48 | PM.PN ---
Subjective Subjective: Interval history: She was seen and examined this morning, continues to be tachycardic and hypotensive overnight, Requiring the need for Levophed, as well as bolus 2 Ls normal saline. Tobias ZAMBRANO reviewed, her other vitals and labs have been reviewed. Medications: Reviewed: Yes Vitals/I&O/Wt Last Vital Signs Temp 99 F 07/04/21 14:00 Pulse 98 07/04/21 14:00 Resp 27 H 07/04/21 14:00 BP 99/65 07/04/21 14:00 Pulse Ox 97 07/04/21 14:00 07/04/21 07/04/21 07/04/21 06:59 14:59 22:59 Intake Total 507.112 / 282.084 7292.888 / 1496.888 172.72 / 1669.608 Output Total 800 / 800 Balance -292.888 / -225.071 2752.888 / 1496.888 172.72 / 1669.608 Weight last 48 hrs Weight 64.138 kg Weight 67.585 kg Physical Exam Const: COMMON NORMALS: patient oriented x3 HENMT: COMMON NORMALS: normocephalic and atraumatic HEAD & SCALP: normocephalic and atraumatic Chest: CHEST: Yes Symmetrical chest wall rise Resp: COMMON NORMALS: clear to auscultation bilaterally AUSCULTATION: clear to auscultation bilaterally Cardio: COMMON NORMALS: regular rate, regular rhythm, S1 normal heart sound present, S2 normal heart sound present, No gallops present (Cardio), No murmurs present (Cardio), No rub (Cardio) and Peripheral pulses 2+ throughout RATE: regular rate RHYTHM: regular rhythm HEART SOUNDS: S1 normal heart sound present and S2 normal heart sound present PERIPHERAL PULSES: Peripheral pulses 2+ throughout GI: COMMON NORMALS: Normal to inspection, nondistended, normoactive bowel sounds present, Soft to palpation, non-tender, No hepatosplenomegaly present and no masses AUSCULTATION: Yes normoactive bowel sounds PALPATION: Yes Soft to palpation and Yes No hepatosplenomegaly present RECTAL EXAM: deferred Extremity: COMMON NORMALS: no clubbing, cyanosis or edema and no pedal edema Neuro: COMMON NORMALS: patient oriented x3 Data : 07/04/21 06:45 07/04/21 06:45 Micro: Microbiology 07/04/21 04:30 MRSA Culture - Final Nose 07/04/21 04:30 Bacterial Antigens - Final Urine,Voided 07/04/21 04:30 Legionella Urinary Antigen - Final Urine,Voided 07/03/21 19:06 Blood Culture - Preliminary Blood SPECIMEN COLLECTED 07/03/21 19:06 Blood Culture - Preliminary Blood SPECIMEN COLLECTED A&P Assessment and plan (1) Cardiogenic shock: Status: Acute (2) Cardiac tamponade: Status: Acute (3) Pneumonia: Status: Acute (4) Acute kidney injury superimposed on CKD: Status: Acute (5) Hyponatremia: Status: Acute (6) Chest pain: Status: Acute (7) Hypertension: Status: Acute Additional A&P Information 66 year old female with past medical history of hypertension recently started on antihypertensive medication currently she is not aware of the name of the medicine, chronic smoker history of CA breast, chronic hypokalemia on oral potassium supplement ,was brought in with chief complaint of substernal chest pain, she is complaining of chest pain with exertion, she is also is complaining of chest pain with inspiration she rates the chest pain at 8/10, sharp with no radiation, along with chest pain she is also complaining of cough with scant sputum production , profound weakness, subjective fever, the symptoms have been going on for last several days. #Cardiogenic shock: Secondary to cardiac tamponade secondary to pericardial effusion. 2D echo done today: Showed pericardial effusion with tamponade physiology. X-ray chest: Water bottle configuration of heart EKG; sinus tachycardia Status post pericardiocentesis with 500 cc serosanguineous pericardial fluid removal. Pericardial drain in place. Status post 3 L normal saline Continue to be on Levophed Continue normal saline 75 cc an hour We will not use diuretics, plan is to keep the patient well-hydrated. #Pneumonia: Elevated procalcitonin: Decreasing, difficult to interpret given underlying HIPOLITO Lactic acid:Normal blood culture:NTD Sputum culture: Monitor x-ray chest Urine Legionella antigen: Negative Urine bacterial antigen panel: Negative Rapid Covid antigen negative Patient has received Covid immunization Initially on ceftriaxone and azithromycin. Has been discontinued will switch to Zosyn for broader coverage. #HIPOLITO on CKD: Likely prerenal secondary to severe dehydration as well as secondary to relative hypotension . Urine electrolytes Urinalysis Renal ultrasound Intake output charting Continue IV hydration with NS at the rate of 100 cc an hour Monitor BMP Avoid nephrotoxic Possible renal consult #Chest pain: Is reproducible, cannot rule out possible underlying pericarditis, possibly pleuritic chest pain secondary to pneumonia. Follow 2D echo ESR: CRP:Normal Continue Tylenol for now, possibly will use steroids if needed, as will have to avoid NSAIDs. #Hypovolemic hyponatremia: Follow serum sodium TSH Cortisol Urine electrolytes Continue IV hydration with normal saline Attestations Medical Necessity Statement*: Patient needs to be in hospital for management of cardiogenic shock Time Spent in Patient Care: 60 minutes in direct patient care. Critical Care Time: Critical Care Time (min): 60 Other Attestations: The high probability of a clinically significant, sudden or life threatening deterioration of the patient's [] system(s) required my full and direct attention, intervention and personal management. The critical care time is as shown. This time is in addition to time spent performing any reported procedures but includes the following: [x] Data and vital sign review and interpretation [x] Patient assessment, examination and intervention [x] Documentation [x] Medication orders and management Procedures Central Line Placement^ Right Femoral: Time out performed: Yes Patient placed on monitor/pulse ox: Yes MD prep: mask, gown and gloves Central line prep: Povidone-Iodine 1% and Chlorhexidine scrub Local anesthesia used: lidocaine 1% Ultrasound used for placement: Yes Central line lumen inserted: triple Post procedure: sutured in place, good blood return and all ports aspirated, flushed, capped Patient tolerated procedure: well and no complications Complications: none Coding Level of Care Code Acute Wet Pour Supervisor for [facility] Fwd Exam Detailed Diagnoses Cardiogenic shock R57.0 Cardiac tamponade I31.4 Pneumonia J18.9 Acute kidney injury superimposed on CKD N17.9; N18.9 Hyponatremia E87.1 Chest pain R07.9 Hypertension I10
--- NOTE | 2021-07-04 16:20 | PM.ACPR ---
Acute Procedures Central Line Placement^: Right Femoral: Time out performed: Yes MD prep: mask, gown and gloves Central line prep: Povidone-Iodine 1%, Chlorhexidine scrub and sterile drapes applied Local anesthesia used: lidocaine 1% Ultrasound used for placement: Yes Central line lumen inserted: triple Post procedure: sutured in place, good blood return, all ports aspirated, flushed, capped and sterile dressing applied Patient tolerated procedure: well and no complications Complications: none
[2021-07-04] MEDS: piperacillin-tazobactam 3.375 GM in sodium chloride 0.9% (plus) 50 ML IV (16:56)
[2021-07-04 17:54] LABS: Total Protein Body Fluid 4.8 g/dL
[2021-07-04 17:55] LABS: LDH Body Fluid 2687 U/L
--- NOTE | 2021-07-04 18:07 | XRR_ITS ---
PROCEDURE INFORMATION: Exam: XR Chest Exam date and time: 07/04/2021 6:07 PM Age: 66 years old Clinical indication: Pain; Left-sided; Prior surgery; Additional info: Chest pain TECHNIQUE: Imaging protocol: XR of the chest. Views: 1 view. COMPARISON: CR XR chest 1V portable [id number] 07/04/2021 8:19 AM FINDINGS: Tubes, catheters and devices: Infusion port catheter remains in place with its tip in the superior vena cava. There is external pacer lead on the left. There is a new catheter with length markings overlying the upper abdomen and left side of the chest of uncertain significance. Lungs: There is minimal left basilar atelectasis. Visualized portions of the right lung are clear. Pleural spaces: Unremarkable. No pleural effusion. No pneumothorax. Heart/Mediastinum: Heart is within normal limits of size. There is no pulmonary vascular congestion. Bones/joints: Unremarkable. XR/XR chest 1V portable [id number] IMPRESSION: Mild basilar atelectasis.
[2021-07-04] MEDS: oxyCODONE-APAP 5-325 mg Tablet 1 TAB PO (18:17)
--- NOTE | 2021-07-04 18:21 | USCV_ITS ---
Jessica Del Rosario Age: 66 Gender: F : 1955 Exam Date: 07/04/2021 11:56 Ordering Phys: Aroldo Bob MD Technologist: JUDAH Exam Location: [facility] [place] Indication: Severe tachycardia up to 169 bpm. Hypotensive. BP: 94 / 69 HR: 104 Rhythm: Sinus tachycardia Technical Quality: Adequate MEASUREMENTS (Male / Female) Normal Values 2D ECHO LV Diastolic Diameter PLAX 2.9 cm 4.2 - 5.9 / 3.9 - 5.3 cm LV Systolic Diameter PLAX 2.0 cm IVS Diastolic Thickness 1.8 cm 0.6 - 1.0 / 0.6 - 0.9 cm IVS Systolic Thickness 2.3 cm LVPW Diastolic Thickness 1.3 cm 0.6 - 1.0 / 0.6 - 0.9 cm LVPW Systolic Thickness 1.6 cm LVOT Diameter 1.9 cm LV Ejection Fraction 2D Teich 56.7 % LV Ejection Fraction MOD 2C 68.3 % LV Ejection Fraction 2C AL 72.4 % LA Diameter 3.7 cm LA Width 3.9 cm LA Height 5.0 cm RA Width 2.6 cm RA Height 4.3 cm Aorta at Sinotubular Diameter 2.6 cm M-MODE Aortic Annulus Diameter 3.1 cm LA Ao Ratio MM 1.2 MV E Point Septal Separation 0.4 cm DOPPLER AV Peak Velocity 115.0 cm/s LVOT Peak Velocity 95.0 cm/s AV Area Cont Eq vti 2.2 cm squared AV Area Cont Eq pk 2.3 cm squared MV Peak Velocity 100.0 cm/s MV Area PHT 5.0 cm squared Mitral E to A Ratio 0.7 MV E' Velocity 32.0 cm/s Mitral E to MV E' Ratio 8.3 Mitral E to LV E' Lateral Ratio 7.1 Mitral E to LV E' Septal Ratio 10.1 TR Peak Velocity 236.7 cm/s TR Peak Gradient 22.4 mmHg Right Atrial Pressure 5.0 mmHg Pulmonary Artery Systolic Pressu 27.4 mmHg PV Peak Velocity 84.0 cm/s RV Acceleration Time 0.1 s RV Ejection Time 0.4 s RV AcT/ET 0.3 FINDINGS Left Ventricle Normal left ventricular cavity size. Normal left ventricular systolic function. Left ventricular ejection fraction is estimated at 70 %. Patient appears to be tachycardic with large sized pericardial effusion of tamponade physiology. Right Ventricle The right ventricle is normal in size and function. Right Atrium The right atrium is normal in size. Left Atrium The left atrium is normal in size. Mitral Valve Structurally normal mitral valve without significant stenosis or prolapse. There is no mitral regurgitation. Aortic Valve Structurally normal aortic valve without significant sclerosis or stenosis. There is no aortic regurgitation. Tricuspid Valve Structurally normal tricuspid valve without significant stenosis or regurgitation. Pulmonary artery systolic pressure is normal. Pulmonic Valve Structurally normal pulmonic valve without significant stenosis. There is no pulmonic regurgitation. Pericardium Large pericardial effusion. Right ventricular diastolic collapse compatible with a hemodynamically significant pericardial effusion. Aorta Normal ascending aorta dimension. CONCLUSIONS 1-Normal left ventricular cavity size. Normal left ventricular systolic function. Left ventricular ejection fraction is estimated at 70 %. Patient appears to be tachycardic with large sized pericardial effusion of tamponade physiology. 2-Large pericardial effusion. Right ventricular diastolic collapse compatible with a hemodynamically significant pericardial effusion. 3-No significant valve abnormalities. 4-Right atrial pressure is around 20 mm of mercury. 5-There are no prior echocardiogram studies to compare. Dallin Tavarez MD (Electronically Signed) Final Date: 04 July 2021 23:50 S
--- NOTE | 2021-07-04 19:05 | PC.NURSE ---
Shift Note Patient came from CSU to ICU 5 via bed around 1000. Patient came with port as only IV access. Patient came with urinary catheter. Patient came with Levo and normal saline. Patient had low blood pressure and tachycardia in the 140s. Patient alert and oriented. Patient refused pain mediations for right shoulder pain of 2. Orders reviewed. Consent obtained for central line and arterial line. Ultrasound done and patient sent to cathode washer. Patient came back to floor around 1350. Instructions received for keeping chest drain closed to patient. Drain in 3 hours first, then every 4 hours afterwards. Drained at 1700 with 186 out. Femoral central line inserted by Dr. Bob. IV medications titrated, see SEP. Daughter called and update given before patient went to cathode washer. Daughter visited patient and update given. Patient is alert and oriented. Patient stated that she had pain at 1800. Dr Bob notified and pain medication was ordered. Lab called about bacteria blood results at 0824. Dr. Bob notified at 1826 via volt. Frequent safety and comfort rounds continue. Orders and/or nursing care completed as indicated. Patient monitored for response to intervention and treatment(s). Education provided includes medications, new results, upcoming procedures, and care plan. Patient and/or telecommunications sales representative verbalized understanding.
[2021-07-04] MEDS: quetiapine 100 mg Tablet PO (20:26)
[2021-07-04] MEDS: zolpidem 5 mg Tablet PO (20:26)
[2021-07-05] VITALS (57 sets, daily range): BP systolic 85–124; BP diastolic 46–68; PULSE 69–170; RESP 11–46; TEMP 36.2–36.9; O2SAT 90–100
[2021-07-05] MEDS: piperacillin-tazobactam 3.375 GM in sodium chloride 0.9% (plus) 50 ML IV ×4 (00:16→23:52)
[2021-07-05] MEDS: sodium chloride 0.9% 1,000 ML 75 ML IV (01:38)
[2021-07-05 05:02] LABS: Basophils % 0.2 %; Hematocrit 26.7 % (37.0-47.0); Hemoglobin 9.1 g/dL (11.5-15.3); Lymphocytes # 0.2 10^3/uL (0.8-4.8); Lymphocytes % 3.9 %; Mean Corpuscular HGB Conc 34.1 g/dL (30.0-36.0); Mean Corpuscular Hemoglobin 29.9 pg (28.0-34.0); Mean Corpuscular Volume 87.8 fl (81-99); Mean Platelet Volume 12.1 fL (7.4-10.4); Monocytes # 0.2 10^3/uL (0.2-0.9); Monocytes % 3.7 %; Neutrophils # 4.71 10^3/uL (1.8-7.7); Neutrophils % 91.6 %; Nucleated Red Blood Cells % 0 %; Platelet Count 114 10^3/cmm (130-400); Red Blood Count 3.04 10^6/uL (4.1-5.3); Red Cell Distribution Width 12.9 % (12.1-15.1); White Blood Count 5.1 10^3/uL (4.0-10.0)
[2021-07-05 05:30] LABS: Alanine Aminotransferase < 5 U/L (0-33); Alkaline Phosphatase 67 IU/L (35-105); Anion Gap 17.1 (5-19); Aspartate Amino Transferase 12 U/L (0-32); Blood Urea Nitrogen 46 mg/dL (8-23); Calcium 6.7 mg/dL (8.5-10.5); Carbon Dioxide 15 mmol/L (22-29); Chloride 108 mmol/L (98-107); Glucose 109 mg/dL (65-115); Osmolality Calculated 296 mOsm/kg (285-295); Potassium 3.1 mmol/L (3.5-5.1); Sodium 137 mmol/L (136-145); Total Bilirubin 0.4 mg/dL (0.15-1.2)
[2021-07-05 05:37] LABS: Procalcitonin 6.01 ng/mL (0-0.5)
--- NOTE | 2021-07-05 05:56 | PC.NURSE ---
uneventful night, pericardial drainage decreasing. approximately 0530 increase in labor of breathing noted with RR low 30 to 32, color WNL O2 sat mid 90s, denied SOB, voice now hoarse, Dr. Livingston notified, no n.o. at this time
--- NOTE | 2021-07-05 08:06 | P.PN_ITS ---
Subjective Subjective: Interval history: Patient was seen and examined this morning, had episodes of SVT on telemetry around noon, with heart rate in 1 50-160 with coughing episodes spontaneously resolved. EKG was done : Shows persistent ST elevation in inferior leads. Patient continues to be on minimal Levophed, good urine output, improving BUN and serum creatinine. Medications: Reviewed: Yes Vitals/I&O/Wt Last Vital Signs Temp 99.9 F H 07/04/21 17:00 Pulse 102 H 07/05/21 06:00 Resp 32 H 07/05/21 05:00 BP 99/50 07/05/21 05:00 Pulse Ox 95 07/05/21 05:00 07/04/21 07/05/21 07/05/21 22:59 06:59 14:59 Intake Total 2595.506 / 4092.394 1166.176 / 5258.570 Output Total 1356 / 1356 890 / 2246 Balance 1239.506 / 2736.394 276.176 / 3012.570 Weight last 48 hrs Weight 64.138 kg Weight 67.585 kg Physical Exam Const: COMMON NORMALS: patient oriented x3 HENMT: COMMON NORMALS: normocephalic and atraumatic HEAD & SCALP: normocephalic and atraumatic Chest: CHEST: Yes Symmetrical chest wall rise Resp: COMMON NORMALS: clear to auscultation bilaterally AUSCULTATION: clear to auscultation bilaterally Cardio: COMMON NORMALS: regular rate, regular rhythm, S1 normal heart sound present, S2 normal heart sound present, No gallops present (Cardio), No murmurs present (Cardio), No rub (Cardio) and Peripheral pulses 2+ throughout RATE: regular rate RHYTHM: regular rhythm HEART SOUNDS: S1 normal heart sound present and S2 normal heart sound present PERIPHERAL PULSES: Peripheral pulse s 2+ throughout GI: COMMON NORMALS: Normal to inspection, nondistended, normoactive bowel sounds present, Soft to palpation, non-tender, No hepatosplenomegaly present and no masses AUSCULTATION: Yes normoactive bowel sounds PALPATION: Yes Soft to palpation and Yes No hepatosplenomegaly present RECTAL EXAM: deferred Extremity: COMMON NORMALS: no clubbing, cyanosis or edema and no pedal edema Neuro: COMMON NORMALS: patient oriented x3 Urinary Catheter Management^: [place]: Cath Placed During This Visit: yes Reason for Continuing Indwelling Catheter: Accurate Measurement of Urinary Output in Critically Ill Patients Urinary Catheter Date of Insertion: 07/04/21 Urinary Catheter Time of Insertion: 08:30 Data : 07/05/21 04:36 07/05/21 04:36 Micro: Microbiology 07/03/21 19:06 Blood Culture - Preliminary Blood NEGATIVE TO DATE 07/03/21 19:06 Blood Culture - Preliminary Blood 07/04/21 04:30 MRSA Culture - Final Nose 07/04/21 04:30 Bacterial Antigens - Final Urine,Voided 07/04/21 04:30 Legionella Urinary Antigen - Final Urine,Voided A&P Assessment and plan (1) Cardiogenic shock: Status: Acute (2) Cardiac tamponade: Status: Acute (3) Pneumonia: Status: Acute (4) Acute kidney injury superimposed on CKD: Status: Acute (5) Hyponatremia: Status: Acute (6) Chest pain: Status: Acute (7) Hypertension: Status: Acute (8) Hypokalemia: Status: Acute Additional A&P Information 66 year old female with past medical history of hypertension recently started on antihypertensive medication currently she is not aware of the name of the medicine, chronic smoker history of CA breast, chronic hypokalemia on oral potassium supplement ,was brought in with chief complaint of substernal chest pain, she is complaining of chest pain with exertion, she is also is complaining of chest pain with inspiration she rates the chest pain at 8/10, sharp with no radiation, along with chest pain she is also complaining of cough with scant sputum production , profound weakness, subjective fever, the symptoms have been going on for last several days. #Cardiogenic shock: Secondary to cardiac tamponade secondary to pericardial ef fusion. 2D echo done today: Showed pericardial effusion with tamponade physiology.Normal left ventricular cavity size. Normal left ventricular systolic function. Left ventricular ejection fraction is estimated at 70 %. Large pericardial effusion. Right ventricular diastolic collapse. No significant valve abnormalities. X-ray chest: Water bottle configuration of heart EKG; sinus tachycardia Status post pericardiocentesis with 1200 cc serosanguineous pericardial fluid removal. Pericardial drain in place. Pericardial fluid analysis: Pericardial fluid glucose:2, pericardial fluid total protein:4.8, pericardial fluid LDH:2687, pericardial fluid WBC:02729, pericardial fluid RBC:103, Status post 3 L normal saline Continue to be on Levophed Continue normal saline We will not use diuretics, plan is to keep the patient well-hydrated. #Pneumonia: Elevated procalcitonin: Decreasing, difficult to interpret given underlying HIPOLITO Lactic acid:Normal blood culture:NTD Sputum culture: Monitor x-ray chest Urine Legionella antigen: Negative Urine bacterial antigen panel: Negative Rapid Covid antigen negative Patient has received Covid immunization Initially on ceftriaxone and azithromycin. Has been discontinued will switch to Zosyn for broader coverage. #HIPOLITO on CKD: Likely prerenal secondary to severe dehydration as well as secondary to relative hypotension . Urine electrolytes Urinalysis Renal ultrasound Intake output charting Continue IV hydration with NS at the rate of 100 cc an hour Monitor BMP Avoid nephrotoxic Possible renal consult #UTI: Urine culture has gram-negative karthikeyan: Pending identification #Chest pain: Is reproducible, cannot rule out possible underlying pericarditis Follow 2D echo ESR: 28 CRP:Normal On aspirin 650 mg p.o. 3 times daily #Hypovolemic hyponatremia: Resolved Monitor serum sodium TSH Cortisol Urine electrolytes Continue IV hydration with normal saline Attestations Medical Necessity Statement*: Patient needs to be in hospital for management of shock. Time Spent in Patient Care: Greater than 35 minutes (>than 50% of time spent in counselling and/or direct pt care on unit) . Critical Care Time: Critical Care Time (min): 40 Other Attestations: The high probability of a clinically significant, sudden or life threatening deterioration of the patient's [] system(s) required my full and direct attention, intervention and personal management. The critical care time is as shown. This time is in addition to time spent performing any reported procedures but includes the following: [x] Data and vital sign review and interpretation [x] Patient assessment, examination and intervention [x] Documentation [x] Medication orders and management Coding Level of Care Code Acute Shoe Sprayer for [facility] Fwd Exam Detailed Diagnoses Cardiogenic shock R57.0 Cardiac tamponade I31.4 Pneumonia J18.9 Acute kidney injury superimposed on CKD N17.9; N18.9 Hyponatremia E87.1 Chest pain R07.9 Hypertension I10 Hypokalemia E87.6
[2021-07-05] MEDS: lidocaine 1% 5 ML in potassium chloride premix 100 ML 25 ML IV (09:42)
[2021-07-05] MEDS: aspirin 325 mg Tablet 650 MG PO ×3 (09:53→20:19)
[2021-07-05] MEDS: zonisamide 100 MG Capsule PO ×2 (09:53→17:47)
[2021-07-05] MEDS: duloxetine 60 mg Capsule PO ×2 (09:53→17:47)
[2021-07-05] MEDS: cyanocobalamin 1,000 mcg Tablet 1000 MCG PO (09:53)
[2021-07-05] MEDS: gabapentin 300 mg Capsule PO ×2 (09:53→17:47)
--- NOTE | 2021-07-05 11:03 | PC.NURSE ---
Returned Alona's, daughter, phone call. Update provided.
--- NOTE | 2021-07-05 12:17 | ECG_ITS ---
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 Measurements Intervals [place] Rate: 70 P: -4 UT: 127 QRS: 6 QRSD: 91 T: 37 QT: 434 QTc: 469 Interpretive Statements SINUS RHYTHM ST ELEVATION, CONSIDER INFERIOR INJURY [MARKED ST ELEVATION W/O NORMALLY INFLECTED T-WAVE IN II/aVF] ACUTE IA Compared to ECG 07/04/2021 05:55:23 ST (T wave) deviation now present Myocardial infarct finding now present Atrial fibrillation no longer present Electronically Signed On 07-07-2021 7:40:45 TRUCK FARMER by Toby Howell M.D. [email or web address]
[2021-07-05 13:40] LABS: Erythrocyte Sedimentation Rate 28 mm/hr (0-15)
[2021-07-05] MEDS: sodium chloride 0.9% 1,000 ML 100 ML IV ×2 (15:22→23:54)
--- NOTE | 2021-07-05 18:32 | PC.NURSE ---
Shift Note; Pt remained in bed this shift. She has spent the majority of the shift resting with eyes closed. Her heart rate has been all over: SVT to bradycardia, mostly it has been sinus rhythm. EKG done today. After pericardial drain drained this am she had very frequent PACs. She is sensitive to Levophed, unable to wean it fully. Had to decrease it by parts of mcg to get it down. Levophed now at 4mcg/min. Iv fluids rate adjusted, now back at 100ml/hr. She received Potassium IV replacement as her home potassim med not available. She denies any pain. Pericardial drain 106 ml output this shift. She did get a quick sponge bath. Urine output adequate at 850 ml this shift. Frequent safety and comfort rounds continue. Orders and/or nursing care completed as indicated. Patient monitored for response to intervention and treatment(s). Education provided includes infection prevention, heart rate, pericardial tamponade, potassium and Zosyn. Patient and/or mill representative verbalized understanding to medications and plan of care . Will continue to monitor.
--- NOTE | 2021-07-05 18:42 | PC.NURSE ---
Shift Note: Pt remained in bed throughout shift. She rested with her eles closed for the majority of shift. Her heart rate was all over: SVT to bradycardia, she mostly stayed sinus rhythm. First elevated heart rate this am she converted back to sinus after a sip of ice water. The next time her heart rate elevated after she coughed. She kept coughing heart rate went sinus then david then sinus with PACs, back to SVt then back to sinus. EKG done. She has denied pain all shift. Pericardial drain : 102 ml pulled. Urine output adequate, 850ml. She remains on Levophed, unable to wean it off completely. She is sensitive to it, it had to be decreased by parts of mcg. Iv fluid rates adjusted, now at 100ml/hr. She received potassium IV replacement today as her home potassium med not available. Frequent safety and comfort rounds continue. Orders and/or nursing care completed as indicated. Patient monitored for response to intervention and treatment(s). Education provided includes Zosyn, Levophed, Aspirin, potassium, pericaridal drain and continuing plan of care. . Patient and/or jewelry sales representative verbalized understanding ofplan of care and medications. Will continue to monitor.
--- NOTE | 2021-07-05 19:00 | PM.PN ---
Subjective Subjective: Interval history: Patient is feeling much better. Her breathing is improved. Heart rates are controlled. Has drained over 1 L since putting the pericardial drain in. Vitals/I&O/Wt Last Vital Signs Temp 97.2 F L 07/05/21 18:00 Pulse 77 07/05/21 18:15 Resp 26 H 07/05/21 18:15 BP 95/61 07/05/21 18:15 Pulse Ox 100 07/05/21 18:15 07/05/21 07/05/21 07/05/21 06:59 14:59 22:59 Intake Total 1216.176 / 5308.570 1736.742 / 1736.742 342.205 / 2078.947 Output Total 890 / 2246 541 / 541 411 / 952 Balance 326.176 / 3062.570 1195.742 / 1195.742 -68.795 / 1126.947 Physical Exam Narrative: EXAM NARRATIVE: GENERAL: Patient is alert and oriented NECK: No jugular vein distension. [] HEENT: No cyanosis. No icterus. No pallor. [] HEART: regular S1 and S2. No murmur, rub or gallop. [] LUNGS: Clear to auscultate bilaterally. [] ABDOMEN: Soft, nontender and nondistended. Positive bowel sounds. No guarding, rebound or tenderness. [] CENTRAL NERVOUS SYSTEM: Grossly nonfocal. [] EXTREMITIES: Lower extremities with 1+ edema bilaterally. Pulses palpable in the lower extremities, both dorsalis pedis and posterior tibial. [] Urinary Catheter Management^: [place]: Cath Placed During This Visit: yes Reason for Continuing Indwelling Catheter: Accurate Measurement of Urinary Output in Critically Ill Patients Urinary Catheter Date of Insertion: 07/04/21 Urinary Catheter Time of Insertion: 08:30 Data : 07/06/21 04:45 07/06/21 04:45 Micro: Microbiology 07/04/21 13:00 Body Fluid Culture - Preliminary Peritoneal Fluid Gram Negative Rods 07/04/21 04:30 Urine Culture - Preliminary Urine,Clean Catch Gram Negative Rods 07/03/21 19:06 Blood Culture - Preliminary Blood NEGATIVE TO DATE 07/03/21 19:06 Blood Culture - Preliminary Blood 07/04/21 04:30 MRSA Culture - Final Nose A&P Assessment and plan (1) Chest pain: Status: Acute (2) Sepsis: Status: Acute (3) Pericardial effusion: Status: Acute (4) Hypertension: Status: Acute Patient was found to have large sized pericardial effusion on echocardiogram. Signs of early tamponade. She was emergently taken to the cardiac Cooling Room Attendant where pericardiocentesis was performed and 500 cc of bloody effusion was drained. Pericardial drain was left in place. Has drained over a liter of bloody effusion so far. Will keep drain in place. She has pericarditis given EKG changes and chest pain symptoms. We will start her on high-dose aspirin 650 mg 3 times daily. Pericarditis could be uremic/malignant. Empiric antibiotic therapy to continue per hospitalist team Thank you for involving us with care of this patient. We will continue to follow. Please call with questions Attestations Medical Necessity Statement*: Care expected to cross 2 midnights. Patient has pericardial drain in place. Coding Level of Care Code Acute Passenger Barge Master for Miah Philip Diagnoses Chest pain R07.9 Sepsis A41.9 Pericardial effusion I31.3 Hypertension I10
[2021-07-05] MEDS: zolpidem 5 mg Tablet PO (20:19)
[2021-07-05] MEDS: quetiapine 100 mg Tablet PO (20:19)
[2021-07-06] VITALS (68 sets, daily range): BP systolic 80–125; BP diastolic 46–80; PULSE 51–91; RESP 5–34; TEMP 36.4–37.5; O2SAT 90–100
[2021-07-06 05:20] LABS: Basophils % 0.3 %; Eosinophils % 0.4 %; Hematocrit 25.4 % (37.0-47.0); Hemoglobin 8.6 g/dL (11.5-15.3); Lymphocytes # 0.6 10^3/uL (0.8-4.8); Lymphocytes % 7.5 %; Mean Corpuscular HGB Conc 33.9 g/dL (30.0-36.0); Mean Corpuscular Hemoglobin 30.1 pg (28.0-34.0); Mean Corpuscular Volume 88.8 fl (81-99); Mean Platelet Volume 12.2 fL (7.4-10.4); Monocytes # 0.3 10^3/uL (0.2-0.9); Monocytes % 3.9 %; Neutrophils # 6.66 10^3/uL (1.8-7.7); Neutrophils % 87.2 %; Nucleated Red Blood Cells % 0 %; Platelet Count 111 10^3/cmm (130-400); Red Blood Count 2.86 10^6/uL (4.1-5.3); White Blood Count 7.6 10^3/uL (4.0-10.0)
[2021-07-06 05:47] LABS: Procalcitonin 3.48 ng/mL (0-0.5)
[2021-07-06 05:52] LABS: Alanine Aminotransferase < 5 U/L (0-33); Albumin Level 1.8 g/dL (3.5-5.2); Alkaline Phosphatase 64 IU/L (35-105); Anion Gap 10.5 (5-19); Aspartate Amino Transferase 9 U/L (0-32); Blood Urea Nitrogen 26 mg/dL (8-23); Calcium 6.6 mg/dL (8.5-10.5); Carbon Dioxide 19 mmol/L (22-29); Chloride 108 mmol/L (98-107); Globulin 3.4 g/dL (1.3-4.6); Glomerular Filtration Rate 84.2 mL/min (90-130); Glucose 113 mg/dL (65-115); Osmolality Calculated 284 mOsm/kg (285-295); Potassium 3.5 mmol/L (3.5-5.1); Sodium 134 mmol/L (136-145); Total Bilirubin 0.3 mg/dL (0.15-1.2); Total Protein 5.2 g/dL (6.6-8.7)
[2021-07-06 05:55] LABS: Thyroid Stimulating Hormone 2.07 uIU/mL (0.27-4.20)
--- NOTE | 2021-07-06 06:00 | XR_ITS ---
WS: [id number] PORTABLE CHEST HISTORY: SOB COMPARISON: 07/04/2021 RIGHT central line with tip in the distal SVC. Lung volumes are decreased. Mild interstitial thickening and haziness bilaterally. No area of very de nse consolidation. No pleural effusion or pneumothorax. Cardiac size: Normal. Mediastinum/Aorta: Normal mediastinum. No osseous abnormality seen. There is a small bore catheter projected over the upper abdomen with the tip coiled over the LEFT hea rt. XR/XR chest 1V portable [id number] IMPRESSION: Very mild interstitial edema. No focal area of consolidation.
[2021-07-06 06:26] LABS: Cortisol Random 19.96 ug/dL (2.47-19.5)
[2021-07-06] MEDS: cyanocobalamin 1,000 mcg Tablet 1000 MCG PO (08:01)
[2021-07-06] MEDS: zonisamide 100 MG Capsule PO ×2 (08:01→17:45)
[2021-07-06] MEDS: gabapentin 300 mg Capsule PO ×2 (08:01→17:45)
[2021-07-06] MEDS: duloxetine 60 mg Capsule PO ×2 (08:01→17:45)
[2021-07-06] MEDS: aspirin 325 mg Tablet 650 MG PO ×3 (08:01→20:06)
--- NOTE | 2021-07-06 08:10 | P.PN_ITS ---
Subjective Subjective: Interval history: Patient was seen and examined this morning, states She feels better , denies any shortness of breath, chest pain, palpitation, minimal pericardial fluid drain. Currently requiring minimal off Levophed, saturating well on minimal of supplemental oxygen. Good urine output, has remained afebrile. Kidney function has normalized. Medications: Reviewed: Yes Vitals/I&O/Wt Last Vital Signs Temp 97.2 F L 07/05/21 18:00 Pulse 83 07/06/21 06:00 Resp 25 H 07/06/21 04:00 BP 95/54 07/06/21 04:00 Pulse Ox 95 07/06/21 04:00 07/05/21 07/06/21 07/06/21 22:59 06:59 14:59 Intake Total 392.205 / 2128.947 1096.52 / 3225.467 Output Total 446 / 987 865 / 1852 Balance -53.795 / 1141.947 231.52 / 1373.467 Physical Exam Const: COMMON NORMALS: patient oriented x3 HENMT: COMMON NORMALS: normocephalic and atraumatic HEAD & SCALP: normocephalic and atraumatic Chest: CHEST: Yes Symmetrical chest wall rise Resp: COMMON NORMALS: clear to auscultation bilaterally AUSCULTATION: clear to auscultation bilaterally Cardio: COMMON NORMALS: regular rate, regular rhythm, S1 normal heart sound present, S2 normal heart sound present, No gallops present (Cardio), No murmurs present (Cardio), No rub (Cardio) and Peripheral pulses 2+ throughout RATE: r egular rate RHYTHM: regular rhythm HEART SOUNDS: S1 normal heart sound present and S2 normal heart sound present PERIPHERAL PULSES: Peripheral pulses 2+ throughout GI: COMMON NORMALS: Normal to inspection, nondistended, normoactive bowel sounds present, Soft to palpation, non-tender, No hepatosplenomegaly present and no masses AUSCULTATION: Yes normoactive bowel sounds PALPATION: Yes Soft to palpation and Yes No hepatosplenomegaly present RECTAL EXAM: deferred Extremity: COMMON NORMALS: no clubbing, cyanosis or edema and no pedal edema Neuro: COMMON NORMALS: patient oriented x3 Urinary Catheter Management^: [place]: Cath Placed During This Visit: yes Reason for Continuing Indwelling Catheter: Accurate Measurement of Urinary Output in Critically Ill Patients Urinary Catheter Date of Insertion: 07/04/21 Urinary Catheter Time of Insertion: 08:30 Data : 07/06/21 04:45 07/06/21 04:45 Micro: Microbiology 07/04/21 04:30 Urine Culture - Final Urine,Clean Catch Escherichia coli esbl 07/03/21 19:06 Blood Culture - Preliminary Blood Escherichia coli esbl 07/04/21 13:00 Fungal Smear - Preliminary Pericardial Fluid 07/04/21 13:00 Body Fluid Culture - Preliminary Peritoneal Fluid Gram Negative Rods A&P Assessment and plan (1) Cardiogenic shock: Status: Acute (2) Cardiac tamponade: Status: Acute (3) Pneumonia: Status: Acute (4) Acute kidney injury superimposed on CKD: Status: Acute (5) Hyponatremia: Status: Acute (6) Chest pain: Status: Acute (7) Hypertension: Status: Acute (8) Hypokalemia: Status: Acute (9) Sepsis: Status: Acute Additional A&P Information 66 year old female with past medical history of hypertension recently started on antihypertensive medication currently she is not aware of the name of the medicine, chronic smoker history of CA breast, chronic hypokalemia on oral potassium supplement ,was brought in with chief complaint of substernal chest pain, she is complaining of chest pain with exertion, she is also is complaining of chest pain with inspiration she rates the chest pain at 8/10, sharp with no radiation, along with chest pain she is also complaining of cough with scant sputum production , profound weakness, subjective fever, the symptoms have been going on for last several days. #Cardiogenic shock: Secondary to cardiac tamponade secondary to pericardial effusion. 2D echo done today: Showed pericardial effusion with tamponade physiology.Normal left ventricular cavity size. Normal left ventricular systolic function. Left ventricular ejection fraction is estimated at 70 %. Large pericardial effusion. Right ventricular diastolic collapse. No significant valve abnormalities. X-ray chest: Water bottle configuration of heart EKG; sinus tachycardia Status post pericardiocentesis with 1200 cc hemorrhagic pericardial fluid removal. Pericardial drain in place. Pericardial fluid analysis: Pericardial fluid glucose:2, pericardial fluid total protein:4.8, pericardial fluid LDH:2687, pericardial fluid WBC:03282, pericardial fluid RBC:103 Pericardial fluid culture: ESBL E. coli. Due for CTA chest abdomen pelvis to rule out underlying malignancy as a cause of possible hemorrhagic pericardial effusion. Status post 3 L normal saline Continue to be on Levophed Continue normal saline We will not use diuretics, plan is to keep the patient well-hydrated. #Sepsis secondary to ESBL E. coli bacteremia. Blood culture: Has grown ESBL E. coli ( 2/3 Bottles ) Repeat blood culture pending. Initially on Zosyn, has been switched to Primaxin. #UTI: Urine culture: ESBL E. coli bacteremia #Chest pain: Is reproducible, cannot rule out possible underlying pericarditis Follow 2D echo ESR: 28 CRP:Normal On aspirin 650 mg p.o. 3 times daily #Pneumonia: Elevated procalcitonin: Decreasing, difficult to interpret given underlying HIPOLITO Lactic acid:Normal Sputum culture: Monitor x-ray chest Urine Legionella antigen: Negative Urine bacterial antigen panel: Negative Rapid Covid antigen negative Patient has received Covid immunization Initially on ceftriaxone and azithromycin. Has been discontinued will switch to Zosyn for broader coverage. #HIPOLITO on CKD: Likely prerenal secondary to severe dehydration as well as secondary to relative hypotension . Resolved Urine electrolytes Urinalysis Renal ultrasound Intake output charting Initially on IV hydration with NS at the rate of 100 cc an hour. Monitor BMP Avoid nephrotoxic Possible renal consult #Hypovolemic hyponatremia: Resolved Monitor serum sodium TSH:Normal Cortisol: 19.96 Urine electrolytes Continue IV hydration with normal saline Attestations Medical Necessity Statement*: Patient is still in hospital for management of above defined problems. Time Spent in Patient Care: Greater than 35 minutes (>than 50% of time spent in counselling and/or direct pt care on unit) . Critical Care Time: Critical Care Time (min): 35 Other Attestations: The high probability of a clinically significant, sudden or life threatening deterioration of the patient's [] system(s) required my full and direct attention, intervention and personal management. The critical care time is as shown. 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
--- NOTE | 2021-07-06 08:38 | P.PN_ITS ---
Subjective Subjective: Interval history: Patient is is doing better. Denies chest pain or shortness of breath. Her pericardial drain output is decreasing Vitals/I&O/Wt Last Vital Signs Temp 97.2 F L 07/05/21 18:00 Pulse 83 07/06/21 06:00 Resp 25 H 07/06/21 04:00 BP 95/54 07/06/21 04:00 Pulse Ox 95 07/06/21 04:00 07/05/21 07/06/21 07/06/21 22:59 06:59 14:59 Intake Total 392.205 / 2128.947 1096.52 / 3225.467 845 / 845 Output Total 446 / 987 865 / 1852 Balance -53.795 / 1141.947 231.52 / 1373.467 845 / 845 Physical Exam Narrative: EXAM NARRATIVE: GENERAL: Patient is alert and oriented NECK: No jugular vein distension. [] HEENT: No cyanosis. No icterus. No pallor. [] HEART: regular S1 and S2. No murmur, rub or gallop. [] LUNGS: Clear to auscultate bilaterally. [] ABDOMEN: Soft, nontender and nondistended. Positive bowel sounds. No guarding, rebound or tenderness. [] CENTRAL NERVOUS SYSTEM: Grossly nonfocal. [] EXTREMITIES: Lower extremities with 1+ edema bilaterally. Pulses palpable in the lower extremities, both dorsalis pedis and posterior tibial. [] Urinary Catheter Management^: [place]: Cath Placed During This Visit: yes Reason for Continuing Indwelling Catheter: Accurate Measurement of Urinary Output in Critically Ill Patients Urinary Catheter Date of Insertion: 07/04/21 Urinary Catheter Time of Insertion: 08:30 Data : 07/06/21 04:45 07/07/21 03:45 Micro: Microbiology 07/04/21 04:30 Urine Culture - Final Urine,Clean Catch Escherichia coli esbl 07/03/21 19:06 Blood Culture - Preliminary Blood Escherichia coli esbl 07/04/21 13:00 Fungal Smear - Preliminary Pericardial Fluid 07/04/21 13:00 Body Fluid Culture - Preliminary Peritoneal Fluid Gram Negative Rods A&P Assessment and plan (1) Chest pain: Status: Acute (2) Sepsis: Status: Acute (3) Pericardial effusion: Status: Acute (4) Hypertension: Status: Acute Patient was found to have large sized pericardial effusion on echocardiogram. Signs of early tamponade. She was emergently taken to the cardiac Hand Finisher where pericardiocentesis was performed and 500 cc of bloody effusion was drained. Pericardial drain was left in place. Has drained over a l iter of bloody effusion so far.Drain output is dfecreasing. We will likely remove it tomorrow. She has pericarditis given EKG changes and chest pain symptoms. Has been started on aspirin 650mg TID. Can add colchicine Renal function has normalized. Can consider doing CT chest/abdomen to rule out malignancy, will defer decision to medicine team Empiric antibiotic therapy to continue per hospitalist team Thank you for involving us with care of this patient. We will continue to follow. Please call with questions Attestations Medical Necessity Statement*: Care expected to cross 2 midnights. 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
[2021-07-06] MEDS: potassium chloride oral liq 20 mEq/15 mL UDC 40 MEQ PO (09:04)
--- NOTE | 2021-07-06 09:26 | PC.NURSE ---
Patient refused to take full dose of liquid Potassium Chloride. Patient took 15 ml of the potassium and refused the second half. Patient stated that it tastes bad and makes her feel nauseated.
[2021-07-06] MEDS: potassium chloride ER 20 mEq Tablet PO (09:48)
[2021-07-06] MEDS: oxyCODONE-APAP 5-325 mg Tablet 1 TAB PO (13:36)
--- NOTE | 2021-07-06 18:23 | PC.NURSE ---
Shift Note Frequent safety and comfort rounds continue. Orders and/or nursing care completed as indicated. Patient monitored for response to intervention and treatment(s). Education provided includes new results, care plan, and medications. Patient verbalized understanding. Daughter came to visit patient and got an update on patient status. Patient eats less then 10% of meals. Nurse gave patient a Boost drink. Patient stated that she likes it. Daughter stated that supplements like Boost. Patient was drowsy to the whole day. For dinner the patient turned on the TV.
--- NOTE | 2021-07-06 20:05 | PC.NURSE ---
Hygiene Patient able to assist with hygiene measures minimally; patient tolerated activity well with all vitals stable. Bed bath provided, gown changed, linens changed, hair care provided, oral care refused.
[2021-07-06] MEDS: zolpidem 5 mg Tablet PO (20:06)
[2021-07-06] MEDS: quetiapine 100 mg Tablet PO (20:06)
[2021-07-07] VITALS (41 sets, daily range): BP systolic 84–127; BP diastolic 48–82; PULSE 57–170; RESP 9–28; TEMP 36.4–36.7; O2SAT 94–99; BMI 25.4
[2021-07-07] MEDS: oxyCODONE-APAP 5-325 mg Tablet 1 TAB PO (00:17)
--- NOTE | 2021-07-07 03:30 | PC.NURSE ---
Sinus Tachycardia Patient experiencing periodic, asymptomatic episodes of sinus tachycardia with HR as high as 167, lasting 2-3 seconds each. Other vitals stable, no signs of decreased cardiac output observed. Dr. Livingston notified and order placed for CMP/Mag lab draw. No other orders obtained.
[2021-07-07 04:50] LABS: Alanine Aminotransferase < 5 U/L (0-33); Albumin Level 2.2 g/dL (3.5-5.2); Alkaline Phosphatase 55 IU/L (35-105); Anion Gap 15.8 (5-19); Aspartate Amino Transferase 10 U/L (0-32); Blood Urea Nitrogen 17 mg/dL (8-23); Calcium 7.1 mg/dL (8.5-10.5); Carbon Dioxide 16 mmol/L (22-29); Chloride 107 mmol/L (98-107); Globulin 3.3 g/dL (1.3-4.6); Glomerular Filtration Rate 100.6 mL/min (90-130); Glucose 98 mg/dL (65-115); Magnesium 1.5 mg/dL (1.7-2.3); Osmolality Calculated 282 mOsm/kg (285-295); Potassium 3.8 mmol/L (3.5-5.1); Sodium 135 mmol/L (136-145); Total Bilirubin 0.3 mg/dL (0.15-1.2); Total Protein 5.5 g/dL (6.6-8.7)
[2021-07-07] MEDS: cyanocobalamin 1,000 mcg Tablet 1000 MCG PO (08:40)
[2021-07-07] MEDS: duloxetine 60 mg Capsule PO ×2 (08:40→18:09)
[2021-07-07] MEDS: aspirin 325 mg Tablet 650 MG PO ×3 (08:40→21:06)
[2021-07-07] MEDS: gabapentin 300 mg Capsule PO ×2 (08:40→18:09)
[2021-07-07] MEDS: potassium chloride ER 20 mEq Tablet 40 MEQ PO (08:40)
[2021-07-07] MEDS: zonisamide 100 MG Capsule PO ×2 (09:06→18:09)
[2021-07-07] MEDS: magnesium sulfate premix 2 GM/50 ML PIGGYBACK IV (15:37)
--- NOTE | 2021-07-07 18:41 | PM.PN ---
Subjective Subjective: Interval history: Patient is is doing better, had episodes of SVT overnight, which spontaneously resolved, no other acute events, she feels better. Total pericardial fluid output:417 Medications: Reviewed: Yes Vitals/I&O/Wt Last Vital Signs Temp 97.7 F 07/07/21 14:00 Pulse 88 07/07/21 16:00 Resp 28 H 07/07/21 16:00 BP 123/81 07/07/21 16:00 Pulse Ox 99 07/07/21 16:00 07/07/21 07/07/21 07/07/21 06:59 14:59 22:59 Intake Total 227.508 / 3917.602 474.671 / 474.671 150 / 624.671 Output Total 635 / 1513 250 / 250 52 / 302 Balance -407.492 / 2404.602 224.671 / 224.671 98 / 322.671 Weight last 48 hrs Weight 67.132 kg Physical Exam Const: COMMON NORMALS: patient oriented x3 HENMT: COMMON NORMALS: normocephalic and atraumatic HEAD & SCALP: normocephalic and atraumatic Chest: CHEST: Yes Symmetrical chest wall rise Resp: COMMON NORMALS: clear to auscultation bilaterally AUSCULTATION: clear to auscultation bilaterally Cardio: COMMON NORMALS: regular rate, regular rhythm, S1 normal heart sound present, S2 normal heart sound present, No gallops present (Cardio), No murmurs present (Cardio), No rub (Cardio) and Peripheral pulses 2+ throughout RATE: regular rate RHYTHM: regular rhythm HEART SOUNDS: S1 normal heart sound present and S2 normal heart sound present PERIPHERAL PULSES: Peripheral pulses 2+ throughout GI: COMMON NORMALS: Normal to inspection, nondistended, normoactive bowel sounds present, Soft to palpation, non-tender, No hepatosplenomegaly present and no masses AUSCULTATION: Yes normoactive bowel sounds PALPATION: Yes Soft to palpation and Yes No hepatosplenomegaly present RECTAL EXAM: deferred Extremity: COMMON NORMALS: no clubbing, cyanosis or edema and no pedal edema Neuro: COMMON NORMALS: patient oriented x3 Urinary Catheter Management^: [place]: Cath Placed During This Visit: yes Reason for Continuing Indwelling Catheter: Accurate Measurement of Urinary Output in Critically Ill Patients Urinary Catheter Date of Insertion: 07/04/21 Urinary Catheter Time of Insertion: 08:30 Data : 07/06/21 04:45 07/07/21 03:45 Micro: Microbiology 07/06/21 14:24 Blood Culture - Preliminary Blood NEGATIVE TO DATE 07/06/21 14:24 Blood Culture - Preliminary Blood NEGATIVE TO DATE 07/04/21 13:00 Body Fluid Culture - Final Peritoneal Fluid Escherichia coli esbl 07/06/21 12:10 Urine Culture - Preliminary Urine Catheterized A&P Assessment and plan (1) Cardiogenic shock: Status: Acute (2) Cardiac tamponade: Status: Acute (3) Pneumonia: Status: Acute (4) Acute kidney injury superimposed on CKD: Status: Acute (5) Hyponatremia: Status: Acute (6) Chest pain: Status: Acute (7) Hypertension: Status: Acute (8) Hypokalemia: Status: Acute (9) Sepsis: Status: Acute Additional A&P Information 66 year old female with past medical history of hypertension recently started on antihypertensive medication currently she is not aware of the name of the medicine, chronic smoker history of CA breast, chronic hypokalemia on oral potassium supplement ,was brought in with chief complaint of substernal chest pain, she is complaining of chest pain with exertion, she is also is complaining of chest pain with inspiration she rates the chest pain at 8/10, sharp with no radiation, along with chest pain she is also complaining of cough with scant sputum production , profound weakness, subjective fever, the symptoms have been going on for last several days. #Cardiogenic shock: Secondary to cardiac tamponade secondary to pericardial effusion. 2D echo done today: Showed pericardial effusion with tamponade physiology.Normal left ventricular cavity size. Normal left ventricular systolic function. Left ventricular ejection fraction is estimated at 70 %. Large pericardial effusion. Right ventricular diastolic collapse. No significant valve abnormalities. X-ray chest: Water bottle configuration of heart EKG; sinus tachycardia Status post pericardiocentesis with 1600 cc hemorrhagic pericardial fluid removal. Pericardial drain in place. Pericardial fluid analysis: Pericardial fluid glucose:2, pericardial fluid total protein:4.8, pericardial fluid LDH:2687, pericardial fluid WBC:10287, pericardial fluid RBC:103 Pericardial fluid culture: ESBL E. coli. Due for CTA chest abdomen pelvis to rule out underlying malignancy as a cause of possible hemorrhagic pericardial effusion. Status post 3 L normal saline Continue to be on Levophed Continue normal saline We will not use diuretics, plan is to keep the patient well-hydrated. #Sepsis secondary to ESBL E. coli bacteremia. Blood culture: Has grown ESBL E. coli ( 2/3 Bottles ) Repeat blood culture pending. Initially on Zosyn, has been switched to Primaxin. #UTI: Urine culture: ESBL E. coli bacteremia #Chest pain: Is reproducible, cannot rule out possible underlying pericarditis Follow 2D echo ESR: 28 CRP:Normal On aspirin 650 mg p.o. 3 times daily #Pneumonia: Elevated procalcitonin: Decreasing, difficult to interpret given underlying HIPOLITO Lactic acid:Normal Sputum culture: Monitor x-ray chest Urine Legionella antigen: Negative Urine bacterial antigen panel: Negative Rapid Covid antigen negative Patient has received Covid immunization Initially on ceftriaxone and azithromycin. Has been discontinued will switch to Zosyn for broader coverage. #HIPOLITO on CKD: Likely prerenal secondary to severe dehydration as well as secondary to relative hypotension . Resolved Urine electrolytes Urinalysis Renal ultrasound Intake output charting Initially on IV hydration with NS at the rate of 100 cc an hour. Monitor BMP Avoid nephrotoxic Possible renal consult #Hypovolemic hyponatremia: Resolved Monitor serum sodium TSH:Normal Cortisol: 19.96 Urine electrolytes Continue IV hydration with normal saline Attestations Medical Necessity Statement*: Patient is to be in hospital for management of above defined problems. Time Spent in Patient Care: 16 - 35 minutes (>than 50% of time spent in counselling and/or direct pt care on unit). Coding Level of Care Code Acute Medical Clerical Assistant for Miah Philip Diagnoses Cardiogenic shock R57.0 Cardiac tamponade I31.4 Pneumonia J18.9 Acute kidney injury superimposed on CKD N17.9; N18.9 Hyponatremia E87.1 Chest pain R07.9 Hypertension I10 Hypokalemia E87.6 Sepsis A41.9
[2021-07-07] MEDS: quetiapine 100 mg Tablet PO (21:06)
[2021-07-07] MEDS: zolpidem 5 mg Tablet PO (21:06)
[2021-07-08] VITALS (69 sets, daily range): BP systolic 77–121; BP diastolic 55–74; PULSE 78–169; RESP 5–38; TEMP 36.4–36.8; O2SAT 83–100
[2021-07-08 04:33] LABS: Basophils % 0.3 %; Eosinophils % 0.1 %; Hematocrit 26.7 % (37.0-47.0); Hemoglobin 8.8 g/dL (11.5-15.3); Lymphocytes # 0.7 10^3/uL (0.8-4.8); Lymphocytes % 7.6 %; Mean Corpuscular Hemoglobin 29.9 pg (28.0-34.0); Mean Corpuscular Volume 90.8 fl (81-99); Mean Platelet Volume 12.6 fL (7.4-10.4); Monocytes # 0.4 10^3/uL (0.2-0.9); Monocytes % 3.6 %; Neutrophils # 8.52 10^3/uL (1.8-7.7); Neutrophils % 87.2 %; Nucleated Red Blood Cells % 0 %; Platelet Count 105 10^3/cmm (130-400); Red Blood Count 2.94 10^6/uL (4.1-5.3); Red Cell Distribution Width 13.2 % (12.1-15.1); White Blood Count 9.8 10^3/uL (4.0-10.0)
[2021-07-08 04:52] LABS: Alanine Aminotransferase < 5 U/L (0-33); Albumin Level 2.3 g/dL (3.5-5.2); Alkaline Phosphatase 58 IU/L (35-105); Anion Gap 16.4 (5-19); Aspartate Amino Transferase 11 U/L (0-32); Blood Urea Nitrogen 12 mg/dL (8-23); Calcium 7.1 mg/dL (8.5-10.5); Carbon Dioxide 17 mmol/L (22-29); Chloride 104 mmol/L (98-107); Globulin 3.6 g/dL (1.3-4.6); Glomerular Filtration Rate 84.2 mL/min (90-130); Glucose 99 mg/dL (65-115); Osmolality Calculated 276 mOsm/kg (285-295); Potassium 4.4 mmol/L (3.5-5.1); Sodium 133 mmol/L (136-145); Total Bilirubin 0.3 mg/dL (0.15-1.2); Total Protein 5.9 g/dL (6.6-8.7)
[2021-07-08] MEDS: aspirin 325 mg Tablet 650 MG PO (08:06)
[2021-07-08] MEDS: potassium chloride ER 20 mEq Tablet 40 MEQ PO (08:06)
[2021-07-08] MEDS: duloxetine 60 mg Capsule PO (08:06)
[2021-07-08] MEDS: gabapentin 300 mg Capsule PO (08:06)
[2021-07-08] MEDS: cyanocobalamin 1,000 mcg Tablet 1000 MCG PO (08:07)
[2021-07-08] MEDS: zonisamide 100 MG Capsule PO (08:07)
--- NOTE | 2021-07-08 12:02 | ECG_ITS ---
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 Measurements Intervals [place] Rate: 145 P: -11 UT: 94 QRS: 48 QRSD: 89 T: 40 QT: 285 QTc: 444 Interpretive Statements SINUS TACHYCARDIA WITH SHORT UT INTERVAL, POSSIBLE ATRIAL FLUTTER LOW QRS VOLTAGE IN EXTREMITY LEADS [QRS DEFLECTION < 0.5 mV IN LIMB LEADS] ABNORMAL RHYTHM ECG INTERPRETATION BASED ON A DEFAULT AGE OF 40 YEARS Compared to ECG 07/05/2021 12:29:23 Low QRS voltage now present Sinus rhythm no longer present ST (T wave) deviation no longer present Myocardial infarct finding no longer present Electronically Signed On 07-08-2021 20:08:43 TUBE BLOWER by Patito Pablo M.D. [id number]
[2021-07-08 12:20] LABS: Alveolar-Arterial Oxygen Gradi 59.8 mmHg (5-10); Base Excess ABG -22.8 mmol/L (-2.0-2.0); Blood Gas Allen Test Pos; Blood Gas Operator Identificat CAK; Blood Gas Sample Site Brachial, left; Blood Gas Sample Type Arterial; Blood Gas Tidal Volume 0.45; Carboxyhemoglobin < 0.0 %THgb (0.4-20.1); HCO3 ABG 5.1 mmol/L (22-26); HGB O2 Sat 97.5 % (95-100); Ionized Calcium Level - ABG 1.1 mmol/L (1.1-1.4); Methemoglobin 1.2 % (0.4-1.5); Oxygen Device VENT; Oxygen Saturation ABG 98.5; Potassium Level - ABG 6.6 mmol/L (3.5-5.0); Total Hemoglobin 9.4 g/dL (12-16)
[2021-07-08 12:21] LABS: ABG PCO2 17.1 mmHg (35-45); ABG PH Result 7.09 (7.35-7.45)
[2021-07-08] MEDS: sodium bicarbonate 8.4% 1 mEq/mL 50mL Syr 100 MEQ IVP (12:32)
--- NOTE | 2021-07-08 12:36 | USCV_ITS ---
Jessica Del Rosario Age: 66 Gender: F : 1955 Exam Date: 07/08/2021 12:49 Ordering Phys: Aroldo Bob MD Technologist: Paty Padgett Exam Location: [facility] [place]: Post code BP: / HR: Rhythm: Sinus Technical Quality: Technically difficult study MEASUREMENTS (Male / Female) Normal Values FINDINGS Left Ventricle Possibly normal LV size and ejection fraction. No gross wall motion normalities noted. Ejection fraction around 55%. Right Ventricle Right ventricle appears to have some extrinsic compression. The anterior pericardial space appears to have echogenic material causing some extrinsic compression of the ventricle Right Atrium Right atrium appears to have some extrinsic compression Left Atrium Possibly of normal size. Mitral Valve No gross abnormalities noted. Moderate to heavy mitral annular calcification. Cannot exclude any masses or vegetation Aortic Valve No gross abnormalities noted Tricuspid Valve Not visualized well Pulmonic Valve Not visualized Pericardium Mild to moderate area of echo-free space around the apex and anterior side of the heart. Echogenic medial patient be attached to the visceral pericardium Aorta Normal aortic annulus size. CONCLUSIONS Possibly normal LV size and ejection fraction of 55%. No gross wall motion normalities. Segmental wall motion analysis difficult because of the technical difficulties The right atrium and the right ventricle appears to have some extrinsic compression with the possible exudative and loculated effusion. Patient is has small to moderate effusion around LV apex. Moderate to heavy mitral annular calcification. Because of the calcification, cannot exclude any masses or vegetations on the valve. Compared to the previous study from 07/04/2021, there is slight worsening of the effusion with possible loculation anteriorly. Dr. Bob was informed about these findings Dr Patito Pablo MD FAC (Electronically Signed) Final Date: 08 July 2021 14:03 S
[2021-07-08 13:01] LABS: Basophils # 0.1 10^3/uL (0.0-0.1); Basophils % 0.3 %; Eosinophils % 0.1 %; Hematocrit 27.2 % (37.0-47.0); Hemoglobin 8.3 g/dL (11.5-15.3); Lymphocytes # 3.8 10^3/uL (0.8-4.8); Lymphocytes % 22.5 %; Mean Corpuscular HGB Conc 30.5 g/dL (30.0-36.0); Mean Corpuscular Volume 98.2 fl (81-99); Mean Platelet Volume 13.7 fL (7.4-10.4); Monocytes # 0.4 10^3/uL (0.2-0.9); Monocytes % 2.3 %; Neutrophils % 70.7 %; Nucleated Red Blood Cells % 0.2 %; Platelet Count 136 10^3/cmm (130-400); Red Blood Count 2.77 10^6/uL (4.1-5.3); Red Cell Distribution Width 13.4 % (12.1-15.1); White Blood Count 16.7 10^3/uL (4.0-10.0)
[2021-07-08 13:16] LABS: Slide Review Slide Review Perform
[2021-07-08] MEDS: sodium bicarbonate 150 MEQ in dextrose 5% 1,000 ML 100 MEQ IV (13:27)
[2021-07-08] MEDS: sodium chloride 0.9% 1,000 ML 999 ML IV (13:29)
--- NOTE | 2021-07-08 13:30 | PC.CHAP ---
Pastoral Care Encounter/Spiritual Assessment Type of Contact [] Declined music department chair visit [] Patient/Family/Request visit [] Outpatient visit [] Follow-up visit [] Physician referral [XX] Code/Alert [] Routine visit [] Staff referral [] Actively dying [] Patient sleeping [] Family support [] [] Out of room [] Palliative care [] [] Receiving care in room [] Pre-surgical visit [] Trauma [] Long length of stay [] ICU visit [XX] Other: Location of the code was in CT. Relational/Emotional Strength [] Patient feels connected with others/family/visitors/staff [] Distress [] Loneliness/isolation [] Abandonment Spirituality of Patient [] Person of Jill [] Attends Quaker of their Jill [] Believes in Prayer [] Reads Bible or Rastafarian materials [] There are Spiritual issues to be addressed Controller Mechanic Interventions [] Prayer [] Active listening [] Non-anxious presence [] Spiritual/emotional support [] Crisis/trauma care [] Spiritual counseling [] Bereavement support [] Provided bereavement packet [] Provided Bible/devotional materials [] Provided toy/stuffed animal, coloring book to patient or family member [] Provided Communion [] Anointing/[place] [] Salvation [] Completed spiritual assessment [] Other: Impact on Illness or Injury [] Angry [] Fearful [] Anxious [] Often cries [] Exhaustion [] Unable to work [] Unable to attend presybeterian [] Unable to walk/stand [] Unable to read [] Unable to drive [] Unable to eat/drink [] Unable to sleep [] Unable to be with family [] Patient intubated [] Other: Summary: Controller Mechanic attended [facility], followed up with [facility] staff who were present, returned to ICU to check on nurse and determine if anything needed to be done with family (no family present). Time spent with patient: 20 mins
[2021-07-08 13:36] LABS: Anion Gap 29.1 (5-19); Blood Urea Nitrogen 13 mg/dL (8-23); Calcium 6.9 mg/dL (8.5-10.5); Chloride 103 mmol/L (98-107); Glomerular Filtration Rate 84.2 mL/min (90-130); Glucose 123 mg/dL (65-115); Magnesium 2.4 mg/dL (1.7-2.3); Osmolality Calculated 279 mOsm/kg (285-295); Potassium 6.1 mmol/L (3.5-5.1); Sodium 134 mmol/L (136-145)
[2021-07-08 14:42] LABS: Carbon Dioxide 8 mmol/L (22-29); Phosphorus 8.3 mg/dL (2.5-4.5)
[2021-07-08 14:56] LABS: ABG PCO2 19.5 mmHg (35-45); Alveolar-Arterial Oxygen Gradi 34.5 mmHg (5-10); Arterial Blood Gas Hematocrit 27.1 % (37-47); Base Excess ABG -18.6 mmol/L (-2.0-2.0); Blood Gas Operator Identificat CAK; Blood Gas Sample Type Arterial; Blood Gas Tidal Volume 0.45; Carboxyhemoglobin < 0.0 %THgb (0.4-20.1); HCO3 ABG 7.6 mmol/L (22-26); HGB O2 Sat 98.4 % (95-100); Methemoglobin 1.2 % (0.4-1.5); Oxygen Device VENT; Oxygen Saturation ABG 99.3; Potassium Level - ABG 6.5 mmol/L (3.5-5.0); Total Hemoglobin 8.8 g/dL (12-16)
--- NOTE | 2021-07-08 15:00 | PM.CCN ---
Critical Care Event Note Critical Care Event Responded to overhead page for CODE BLUE in CT scanner. Upon arrival found Ms. Mccrary to be pulseless with chest compressions and [id number] ventilations. I personally directed the code until Dr. Bob arrived and subsequently provided assistance as indicated. I performed intubation as below. Due to a high probability of clinically significant, possibly life threatening deterioration, the patient required my highest level of attention and preparedness to intervene emergently and I personally spent this critical care time directly and personally managing the patient. This critical care time included obtaining a history; examining the patient; pulse oximetry; ordering and review of laboratory and imaging studies; arranging urgent treatment with development of a management plan; evaluation of patient's response to treatment; frequent reassessment; and, discussions with other providers as applicable. It was exclusive of separately billable procedures. Critical Care Time Critical Care Time: Code activated: Yes Critical Care Time (min): 15 Procedures Intubation Time out performed: No (emergent situation) Laryngoscope: Cruz ET tube size: 8 Tube placement confirmation: visualized tube passing through cords, equal breath sounds bilaterally, no breath sounds over epigastrium and color change noted Additional comments: 2 attempts required Coding Level of Care Code Acute Gunner'S Mate M for Miah Philip
[2021-07-08 15:03] LABS: Troponin T (5th) Once 37 ng/L (0-10)
[2021-07-08] MEDS: norepinephrine 8 MG in dextrose 5 % 500 ML 76.2 MG IV (15:12)
[2021-07-08] MEDS: dextrose 50% syringe 50 mL 25 ML IVP (15:26)
[2021-07-08] MEDS: insulin regular-human 5 UNIT in SYRINGE 1 EACH IVP (15:26)
--- NOTE | 2021-07-08 15:42 | XRR_ITS ---
PROCEDURE INFORMATION: Exam: XR Chest Exam date and time: 07/08/2021 3:42 PM Age: 66 years old Clinical indication: Device placement; Other: Og tube placement; Cough; Additional info: Post intubation and og placement TECHNIQUE: Imaging protocol: XR of the chest. Views: 1 view. COMPARISON: CR XR chest 1V portable [id number] 07/06/2021 5:38 AM FINDINGS: Tubes, catheters and devices: Endotracheal tube terminates 2 cm above the becky. OG tube terminates in the stomach. Right central line terminates in the proximal right atrium. Lungs: Consolidation in the left mid and lower lung. Pleural spaces: Bilateral small volume pleural effusions. No pneumothorax. Heart/Mediastinum: Moderate cardiomegaly and central pulmonary vascular congestion. Bones/joints: Unremarkable. XR/XR chest 1V portable [id number] IMPRESSION: OG tube terminates in the stomach.
--- NOTE | 2021-07-08 16:43 | P.CONIM_ITS ---
Providers/Reason For Consult Consulting Physician/Specialty*: Dr. Caballero/cardiothoracic surgery Reason for Consult*: Pericardial effusion with hemodynamic instability; status post pericardiocentesis Requesting Physician: Aroldo Bob MD Attending Physician: Aroldo Bob MD History of Present Illness History of Present Illness Jessica Del Rosario is a 66 year old female whom I been consulted on by Dr. Bob to consider pericardial window due to continued hemodynamic instability and acido sis. She originally presented on July 03 with chest pain and EKG evidence for STEMI. Left heart catheterization by Dr. Howell revealed nonobstructive coronary disease that did not require intervention. Post procedure she did well for about 24 hours and developed progressive hemodynamic instability and tachycardia. Subsequent echocardiogram revealed large effusion consistent with tamponade physiology as reviewed by Dr. Tavarez. She underwent percutaneous pericardiocentesis by Dr. Howell on July 04. Approximately 500 cc of bloody effusion was obtained. She does have E. coli infection and sepsis and currently is on Primaxin. As well, and during a planned CT scan of the abdomen and pelvis today, she developed cardiac arrest in the radiology department requiring CPR resuscitation and intubation. The radiographic study was not completed. She is now in the ICU on both Levophed and now the addition of vasopressin with systolic blood pressure 100 and a heart rate 116. She is orally intubated. Pericardiocentesis drain remains in place, though it was noted as described Dr. Bob that drain output had decreased yesterday evening and continues today, so there is now some concern as to the functionality of this drain. She underwent transthoracic echocardiogram today and this was read by Dr. Pablo. I had a conference call with Dr. Pbalo and Dr. Bob. The effusion is still present with some potential loculation anteriorly, along the right lateral wall, and apically though the overall volume does appear to be less then with the study performed immediately prior to the original pericardiocentesis on July 04. Despite fluid resuscitation, pressor support, and antibiotic therapy, she remains acidotic with a pH of 7.2. This has not substantially improved over the last couple of hours. It is now the consensus that we should consider proceeding with a pericardial window in an effort to provide a larger drain, and hopefully relieve some of these loculated areas, though it was clearly stated understood that are approach would provide limited exposure, but would be better tolerated than any other type of approach for pericardial drainage surgically. Review of Systems General: Reports: ROS unobtainable due to mental status (Review of systems obtained by chart review) Meds/Allergies Home Medications and Allergies Home Medications Medication Instructions Recorded Confirmed Last Taken Type Vitamin B-12 1 tab PO DAILY 07/03/21 07/03/21 Unknown History albuterol sulfate 2 puff INHALATION QID PRN 07/03/21 07/03/21 Unknown History duloxetine 60 mg PO BID 07/03/21 07/03/21 07/03/21 12:00 History gabapentin 300 mg PO TID 07/03/21 07/03/21 Unknown History omega-3 fatty acids [Fish Oil] 1 cap PO DAILY 07/03/21 07/03/21 Unknown History potassium gluconate 595 mg PO DAILY 07/03/21 07/03/21 Unknown History quetiapine 100 mg PO BEDTIME 07/03/21 07/03/21 07/02/21 History zolpidem 5 mg PO BEDTIME 07/03/21 07/03/21 07/02/21 History zonisamide 100 mg PO BID 07/03/21 07/03/21 07/03/21 12:00 History Allergies Allergy/AdvReac Type Severity Reaction Status Date / Time No Known Allergies Allergy Unverified 07/03/21 16:28 Current Medications Current Medications Generic Name Dose Route Start Last Admin Trade Name Freq PRN Reason Stop Dose Admin Aspirin 650 mg 07/05/21 09:00 07/08/21 08:06 Aspirin 325 Mg Tablet PO 650 mg TID RAMAN Administration Cyanocobalamin 1,000 mcg 07/04/21 09:00 07/08/21 08:07 Cyanocobalamin 1,000 Mcg Tablet PO 1,000 mcg DAILY RAMAN Administration Duloxetine HCl 60 mg 07/04/21 09:00 07/08/21 08:06 Duloxetine 60 Mg Capsule PO 60 mg BID RAMAN Administration Gabapentin 300 mg 07/04/21 09:00 07/08/21 08:06 Gabapentin 300 Mg Capsule PO 300 mg BID RAMNA Administration Imipenem/Cilastatin Sodium 500 100 mls @ 200 mls/hr 07/06/21 08:30 07/08/21 16:00 mg/ Sodium Chloride IV Infused Q6H RAMAN Infusion Protocol Midazolam HCl 100 mg/ Sodium 100 mls @ 0 mls/hr 07/08/21 11:45 07/08/21 16:10 Chloride IV 2 mg/hr .Q0M RAMAN 2 mls/hr Titration Protocol Per Protocol Sodium Bicarbonate 150 meq/ 1,150 mls @ 100 mls/hr 07/08/21 12:30 07/08/21 15:36 Dextrose IV 150 mls/hr .[id number] RAMAN Infusion Vasopressin 40 unit/ Sodium 40 mls @ 0.03 mls/min 07/08/21 13:00 07/08/21 13:27 Chloride IV 0.03 mls/min CONT RAMAN Administration Fentanyl 1,000 mcg/ Sodium 100 mls @ 0 mls/hr 07/08/21 13:00 07/08/21 14:00 Chloride IV 750 mcg/hr .Q0M RAMAN 75 mls/hr Titration Protocol Per Protocol Norepinephrine Bitartrate 8 mg 508 mls @ 0 mls/hr 07/08/21 14:15 07/08/21 16:29 / Dextrose IV 14 mcg/min .Q0M RAMAN 53.34 mls/hr Titration Protocol Per Protocol Oxycodone/Acetaminophen 1 tab 07/04/21 18:06 07/07/21 00:17 Oxycodone-Apap 5-325 Mg Tablet PO 1 tab Q4H PRN Administration MODERATE PAIN Potassium Chloride 40 meq 07/07/21 09:00 07/08/21 08:06 Potassium Chloride Er 20 Meq Tablet PO 40 meq DAILY RAMAN Administration Quetiapine Fumarate 100 mg 07/03/21 21:00 07/07/21 21:06 Quetiapine 100 Mg Tablet PO 100 mg BEDTIME RAMAN Administration Zonisamide 100 mg 07/04/21 09:00 07/08/21 08:07 Zonisamide 100 Mg Capsule PO 100 mg BID RAMAN Administration Vitals/I&O/Wt Last Vital Signs Temp 97.6 F 07/08/21 08:00 Pulse 90 07/08/21 10:00 Resp 27 H 07/08/21 16:01 BP 93/63 07/08/21 10:00 Pulse Ox 100 07/08/21 16:01 07/08/21 07/08/21 07/08/21 06:59 14:59 22:59 Intake Total 400 / 1224.671 193.821 / 193.821 404.613 / 598.434 Output Total 370 / 772 Balance 30 / 452.671 193.821 / 193.821 404.613 / 598.434 Weight last 48 hrs Weight 148 lb 12.8 oz Weight 148 lb Physical Exam Chest: CHEST: Yes Symmetrical chest wall rise OTHER: Pericardiocentesis drain in place. Resp: COMMON NORMALS: No retractions and clear to auscultation bilaterally EFFORT & INSPECTION: Yes symmetric chest movement AUSCULTATION: clear to auscultation bilaterally OTHER: Orally intubated Cardio: RATE: tachycardic Urinary Catheter Management^: Adair: Cath Placed During This Visit: yes Reason for Continuing Indwelling Catheter: Accurate Measurement of Urinary Output in Critically Ill Patients Urinary Catheter Date of Insertion: 07/04/21 Urinary Catheter Time of Insertion: 08:30 Data Micro: Micro: Microbiology 07/08/21 12:59 Gram Stain - Final Sputum - Endotrac heal Tube Aspirate 07/06/21 12:10 Urine Culture - Fi nal Urine Catheterize d 07/06/21 14:24 Blood Culture - Pr eliminary Blood NEGATIVE TO NIKHIL E 07/06/21 14:24 Blood Culture - Pr eliminary Blood NEGATIVE TO NIKHIL E A&P Assessment and plan (1) Pericardial effusion: Apparently loculated pericardial effusion with concerns of cardiac compromise. Patient remains in critical condition on 2 pressor agents and intermittently marginal blood pressure. She is orally intubated. I have spoken with her daughter, Alona Robin, by phone about the most recent events today and now the consideration for surgical pericardial window. The clinical condition of her mother was very frankly discussed. Also discussed that is my impression that there are other factors related to her critical nature and that pericardial window may not provide any meaningful, or lasting improvement and will place her mother at risk related to operative procedure while in a critical state. She states understanding wishes for us to proceed. Status: Acute Consult Attestations Medical Necessity Statement: Hemorrhagic pericardial effusion with hemodynamic instability Time Spent in Patient Care: Greater than 35 minutes Coding Level of Care Code Acute Geographic Information Systems Analyst for Miah Philip Diagnoses Pericardial effusion I31.3
--- NOTE | 2021-07-08 17:26 | PC.NURSE ---
Cardiac Arrest This nurse took Mrs. Del Rosario to CT scan to obtain CTA of chest, pelvic, and abd. Shortly after placing patient on table for CT, patient said that she felt short of breath but wasn't unusual when she was laying flat. Patient then asked to sit up for a few minutes, labored breathing noted. Patient placed on oxygen and noted to still be responding and answering questions. Patient hooked back up to monitor, was unable to get a reading. Patient then became unresponsive, [facility] called at 1051. Chest compression began at this time. Dr. Bob and ED physician arrived at site. EPI given at 1053, pulse check at 1055, no pulse and continued compressions, another EPI given at 1056. Patient intubated by ED physician at 1057. Tube size 8 and 24 at this lip. Breath given by RT Edwin. Pt noted to be in PEA at 1058. Another EPI given at 1059, pulse check at 1100-PEA, chest compressions resumed, 1101 Epi given, patient noted to have a faint pulse at 1102. Bicarb given at 1104. Patient moved back to ICU room at 1106 with help of healthcare workers that arrived at [facility]. Unable to obtain a blood Pressure, ED physician placed Artline. Levophed, vasopressin started. Sedation noted to be fentanyl and versed. Sodium bicarb running at 100ml/hr and a 2 Normal saline boluses per Dr. Bob's orders, see mar for titration. Labs order. See RT documentation for vent settings. This nurse called and updated family on patient event, Dr. Bob to call family later this afternoon. See Vitals signs. OG tube placed at 1530, chest X-ray ordered to confirmed placement, see reports.
[2021-07-08] MEDS: ceFAZolin 1,000 mg SDV 1000 MG IRRIGATION (17:40)
[2021-07-08 18:23] LABS: ABG PH Result 7.35 (7.35-7.45); Alveolar-Arterial Oxygen Gradi 78.8 mmHg (5-10); Arterial Blood Gas Hematocrit 31.7 % (37-47); Base Excess ABG 8.9 mmol/L (-2.0-2.0); Blood Gas Operator Identificat CAK; Blood Gas Sample Site ARTLINE; Blood Gas Sample Type Arterial; Carboxyhemoglobin 0.8 %THgb (0.4-20.1); HCO3 ABG 36.3 mmol/L (22-26); HGB O2 Sat 73.3 % (95-100); Ionized Calcium Level - ABG 0.8 mmol/L (1.1-1.4); Methemoglobin 0.8 % (0.4-1.5); Oxygen Device VENT; Oxygen Saturation ABG 74.5; PO2 ABG 35.4 mmHg (80.0-100.0); Potassium Level - ABG 8.1 mmol/L (3.5-5.0); Total Hemoglobin 10.4 g/dL (12-16)
--- NOTE | 2021-07-08 18:38 | P.PN_ITS ---
Subjective Subjective: Interval history: Patient is is doing better, continue to have intermittent episodes of SVT,says she fells better,currently on minim of levophed.Kidney function has normalized.Her other vitals and labs have been reviewed. Medications: Reviewed: Yes Vitals/I&O/Wt Last Vital Signs Temp 97.9 F 07/08/21 14:00 Pulse 104 H 07/08/21 16:45 Resp 27 H 07/08/21 16:01 BP 112/73 07/08/21 17:45 Pulse Ox 100 07/08/21 16:45 07/08/21 07/08/21 07/08/21 06:59 14:59 22:59 Intake Total 400 / 6175.051 7641.821 / 1193.821 489.776 / 1683.597 Output Total 370 / 772 Balance 30 / 789.962 5509.821 / 1193.821 489.776 / 1683.597 Weight last 48 hrs Weight 67.495 kg Weight 67.132 kg Physical Exam Narrative: EXAM NARRATIVE: Intubated and sedated HENMT: COMMON NORMALS: normocephalic and atraumatic HEAD & SCALP: normocephalic and atraumatic Chest: CHEST: Yes Symmetrical chest wall rise Resp: COMMON NORMALS: clear to auscultation bilaterally AUSCULTATION: clear to auscultation bilaterally Cardio: COMMON NORMALS: regular rate, regular rhythm, S1 normal heart sound present, S2 normal heart sound present, No gallops present (Cardio), No murmurs present (Cardio), No rub (Cardio) and Peripheral pulses 2+ throughout RATE: regular rate RHYTHM: regular rhythm HEART SOUNDS: S1 normal heart sound present and S2 normal heart sound present PERIPHERAL PULSES: Peripheral pulses 2+ throughout GI: COMMON NORMALS: Normal to inspection, nondistended, normoactive bowel sounds present, Soft to palpation, non-tender, No hepatosplenomegaly present and no masses AUSCULTATION: Yes normoactive bowel sounds PALPATION: Yes Soft to palpation and Yes No hepatosplenomegaly present RECTAL EXAM: deferred Extremity: COMMON NORMALS: no clubbing, cyanosis or edema and no pedal edema Urinary Catheter Management^: Adair: Cath Placed During This Visit: yes Reason for Continuing Indwelling Catheter: Accurate Measurement of Urinary Output in Critically Ill Patients Urinary Catheter Date of Insertion: 07/04/21 Urinary Catheter Time of Insertion: 08:30 Data : 07/08/21 11:38 07/08/21 11:38 Micro: Microbiology 07/08/21 12:59 Gram Stain - Final Sputum - Endotracheal Tube Aspirate 07/06/21 12:10 Urine Culture - Final Urine Catheterized 07/06/21 14:24 Blood Culture - Preliminary Blood NEGATIVE TO DATE 07/06/21 14:24 Blood Culture - Preliminary Blood NEGATIVE TO DATE A&P Assessment and plan (1) Cardiogenic shock: Status: Acute (2) Cardiac tamponade: Status: Acute (3) Pneumonia: Status: Acute (4) Acute kidney injury superimposed on CKD: Status: Acute (5) Hyponatremia: Status: Acute (6) Chest pain: Status: Acute (7) Hypertension: Status: Acute (8) Hypokalemia: Status: Acute (9) Sepsis: Status: Acute Additional A&P Information 66 year old female with past medical history of hypertension recently started on antihypertensive medication currently she is not aware of the name of the medicine, chronic smoker history of CA breast, chronic hypokalemia on oral potassium supplement ,was brought in with chief complaint of substernal chest pain, she is complaining of chest pain with exertion, she is also is complaining of chest pain with inspiration she rates the chest pain at 8/10, sharp with no radiation, along with chest pain she is also complaining of cough with scant sputum production , profound weakness, subjective fever, the symptoms have been going on for last several days. #Cardiogenic shock: Secondary to cardiac tamponade secondary to pericardial effusion. 2D echo done today: Showed pericardial effusion with tamponade physiology.Normal left ventricular cavity size. Normal left ventricular systolic function. Left ventricular ejection fraction is estimated at 70 %. Large pericardial effusion. Right ventricular diastolic collapse. No significant valve abnormalities. X-ray chest: Water bottle configuration of heart EKG; sinus tachycardia Status post pericardiocentesis with 1600 cc hemorrhagic pericardial fluid removal. Pericardial drain in place. Pericardial fluid analysis: Pericardial fluid glucose:2, pericardial fluid total protein:4.8, pericardial fluid LDH:2687, pericardial fluid WBC:50053, pericardial fluid RBC:103 Pericardial fluid culture: ESBL E. coli. Due for CTA chest abdomen pelvis to rule out underlying malignancy as a cause of possible hemorrhagic pericardial effusion. Status post 3 L normal saline Continue to be on Levophed Continue normal saline We will not use diuretics, plan is to keep the patient well-hydrated. #Sepsis secondary to ESBL E. coli bacteremia. Blood culture: Has grown ESBL E. coli ( 2/3 Bottles ) Repeat blood culture pending. Initially on Zosyn, has been switched to Primaxin. #UTI: Urine culture: ESBL E. coli bacteremia #Chest pain: Is reproducible, cannot rule out possible underlying pericarditis Follow 2D echo ESR: 28 CRP:Normal On aspirin 650 mg p.o. 3 times daily #Pneumonia: Elevated procalcitonin: Decreasing, difficult to interpret given underlying HIPOLITO Lactic acid:Normal Sputum culture: Monitor x-ray chest Urine Legionella antigen: Negative Urine bacterial antigen panel: Negative Rapid Covid antigen negative Patient has received Covid immunization Initially on ceftriaxone and azithromycin. Has been discontinued will switch to Zosyn for broader coverage. #HIPOLITO on CKD: Likely prerenal secondary to severe dehydration as well as secondary to relative hypotension . Resolved Urine electrolytes Urinalysis Renal ultrasound Intake output charting Initially on IV hydration with NS at the rate of 100 cc an hour. Monitor BMP Avoid nephrotoxic Possible renal consult #Hypovolemic hyponatremia: Resolved Monitor serum sodium TSH:Normal Cortisol: 19.96 Urine electrolytes Continue IV hydration with normal saline Attestations Medical Necessity Statement*: Patient needs to be in hospital for the ma nagement of Shock. Coding Level of Care Code Acute Automatic Teller Machine Servicer for [facility] Fwd Exam Detailed Diagnoses Cardiogenic shock R57.0 Cardiac tamponade I31.4 Pneumonia J18.9 Acute kidney injury superimposed on CKD N17.9; N18.9 Hyponatremia E87.1 Chest pain R07.9 Hypertension I10 Hypokalemia E87.6 Sepsis A41.9
--- NOTE | 2021-07-08 19:09 | PM.OP ---
Operative Report Date of procedure: July 08, 2021 Pre-op Diagnosis: Large pericardial effusion/early tamponade Post-op diagnosis: same Procedure Done: Subxiphoid pericardial window/median sternotomy Open cardiac massage. Attempt to control bleeding with transmural deficit in the posterior wall Specimens removed/disposition: Biopsies of the defect of the posterior wall along with thrombus and organized material Surgeon: Jimbo Caballero Anesthesia: General Estimated blood loss (mL): 800 Complications: Intraoperative cardiac arrest, exsanguinating hemorrhage, Brief History: Ms. Del Rosario is a 66-year-old female who was been in the ICU after cardiac arrest earlier today in the radiology department during planning CAT scan. She was orally intubated and on 2 pressor agents which include Levophed and vasopressin. She has organized clot which has been described as anteriorly and right laterally the pericardiocentesis drain which was placed 4 days ago. This drainage has marginal function, and though there is no martha evidence of tamponade by RV infolding on recent echo as described to me, there is concern of increasing fluid collection in the recommendation to consider pericardial window and evacuation of the pericardium. He originally presented with ST elevations consistent with acute infarction. Patient remained in critical condition. This was discussed with her daughter very frankly. She understood the critical nature of her mother. Proper consents have been reviewed and signed. Procedure: Ms. Del Rosario was taken to the operating room theater with a systolic blood pressure of approximately 90-100 while on vasopressin and Levophed. Heart rate 115-120. She was carefully positioned on the OR table. Her entire chest wall was sterilely prepped and draped. The previous pericardiocentesis drain was cut approximately 1 inch above the skin level prior to prep. A subxiphoid midline incision was made carried down through subtendinous tissues with the xiphoid being dissected and transected at the base of the sternum. Once this was done we continued dissection of the pericardium which was opened with a #15 scalpel blade there was a large amount of clot. This was removed both manually and with careful suction. There was really no change in blood pressure though there was some arrhythmia with frequent PVCs. Transesophageal echocardiogram revealed substantial clot around the right atrium as well as posteriorly and some anteriorly. Dissection was continued as we attempted to remove this manual clot. In doing so there was some increase in blood return from the pericardium as the clot was removed. On 2 episodes this decreased fairly rapidly and was felt to be related to areas of loculation. However, bleeding then did resume and was substantial enough that I felt formal sternotomy would be required an attempt to assess the origin and control. Became increased and difficult to maintain blood pressure as arrhythmia increase. Sternotomy was rapidly performed with Ankeney retractor being placed and the pericardium opened beginning at the pericardial window and continuing up to the aorta. Quite a bit of clot was identified and there was substantial friability to the entire myocardium on all surfaces. Open cardiac massage was performed and blood pressure could not be obtained and rapid volume resuscitation with crystalloid and blood was then performed as we began setting up to attempt cardiopulmonary bypass. However, we never obtained a meaningful blood pressure and the rhythm rapidly decreased to agonal. Despite maximal efforts by our surgical team and our anesthesia colleagues, we could never obtain a meaningful blood pressure or rhythm and she was pronounced at 1826. Postmortem inspection of the posterior aspect of the heart identified what appeared to be a defect approximately 1.5 to 2 cm of the inferior surface and superiorly near the AV groove. I did attain specimens from this defect as well as other materials in the pericardium which will be sent to pathology for examination. Etiology for this defect is unclear as it is up near the base inferiorly.
--- NOTE | 2021-07-08 19:41 | P.DES_ITS ---
Discharge Providers DDS Date of Admission: 07/03/21 17:20 Date Summary Completed: 07/08/21 Attending Provider at Admission: Toby Howell M.D Time of : 18:26 Attending Provider at Discharge: MD COSMO Paulino Diagnoses Hospital Diagnoses (1) Cardiogenic shock: (2) Cardiac tamponade: (3) Pneumonia: (4) Acute kidney injury superimposed on CKD: (5) Hyponatremia: (6) Chest pain: (7) Hypertension: (8) Hypokalemia: (9) Sepsis: Reason for Visit Reason for Visit: LETHARGIC/SOB/COUGH/FEVER Summary Date and Time of Date of : 07/08/21 Time of : 18:26 Summary Summary: 66-year-old female admitted on July 03 with evidence for STEMI with elevated STs by EKG and elevated troponin. Left heart catheterization described as revealing no obstructive coronary disease. Patient found to have E. coli septicemia and infected urine. Developed pericardial effusion underwent pericardiocentesis on July 04. Greater than 700 cc recovered. This was a bloody effusion. Over the past couple of days has required inotropic support, and underwent cardiac arrest in radiology department during planned CT scan of the abdomen and pelvis earlier today. Patient continued to have marginal blood pressure while on 2 vasopressors, Levophed and vasopressin. Retained clot and fluid noted. Remained acidotic with a pH of 7.2. After consultation with cardiology, there was concern that perhaps a pericardiocentesis drain, which had decreased output over the past 24 hours, may not be adequate due to the expected clot. Therefore, patient was taken operating room on July 08 and during pericardial window and removal of clot began to have progressive arrhythmias and decreasing blood pressure and increasing bloody drainage. Urgent sternotomy was performed despite open besides and aggressive chemical and fluid resuscitation, she at 1826 today. Postmortem examination revealed what appears to be a defect on the base of the heart inferiorly of 1.5 to 2 cm. Family was notified of her critical nature throughout the day and in her unfortunate expiration. I did personal counselor with family and they have visited with Ms. Del Rosario. Body will be released per their instructions. Project Development Engineer has been notified and has cleared for her release. Additional Data Confirmation of as documented by pronouncing clinician: no pulse, no respirations, no heart sounds and pupils fixed and dilated Family: at bedside Additional persons at bedside: nursing staff Attending/PCP notified?: Attending notified Was code activated?: No (Intraoperative arrest: Resuscitation attempted per ACLS) Autopsy requested?: No Advance directives?: No Hospice patient?: No Discharge Plan Discharge Patient Disposition: Home Condition: Stable Prescriptions: No Action quetiapine 100 mg tablet 100 mg PO BEDTIME RF: 0 zonisamide 100 mg capsule 100 mg PO BID RF: 0 gabapentin 300 mg capsule 300 mg PO TID RF: 0 zolpidem 5 mg tablet 5 mg PO BEDTIME RF: 0 Fish Oil Capsule 1 cap PO DAILY RF: 0 duloxetine 60 mg capsule,delayed release(DR/EC) 60 mg PO BID RF: 0 potassium gluconate 595 mg (99 mg) Tablet 595 mg PO DAILY RF: 0 Vitamin B-12 1 tab PO DAILY RF: 0 albuterol sulfate 90 mcg/actuation Hfa Aerosol Inhaler 2 puff INHALATION QID PRN (Reason: Shortness Of Breath) RF: 0 Discharge Orders: Discharge Order (Routine); Ordered 07/08/21 Ordered By: Jimbo Caballero Referrals: Will Howard MD [Physician] - Patient Instructions: Opioid Safety DS Attestations Time Spent in /Discharge Care*: greater than 30 min Quality - AMI: AMI present?: Yes Quality - Stroke: CVA present?: No Quality - VTE: VTE present?: No Coding Level of Care Code Acute Continuous Miner Operator for Chg Fwd Diagnoses Cardiogenic shock R57.0 Cardiac tamponade I31.4 Pneumonia J18.9 Acute kidney injury superimposed on CKD N17.9; N18.9 Hyponatremia E87.1 Chest pain R07.9 Hypertension I10 Hypokalemia E87.6 Sepsis A41.9
--- NOTE | 2021-07-08 20:13 | P.DES_ITS ---
Discharge Providers DDS Date of Admission: 07/03/21 17:20 Date Summary Completed: 07/09/21 Attending Provider at Admission: Toby Howell M.D Time of : 18:26 Attending Provider at Discharge: MD COSMO Paulino Diagnoses Hospital Diagnoses (1) Cardiogenic shock: (2) Cardiac tamponade: (3) Pneumonia: (4) Acute kidney injury superimposed on CKD: (5) Hyponatremia: (6) Chest pain: (7) Hypertension: (8) Hypokalemia: (9) Sepsis: Reason for Visit Reason for Visit: LETHARGIC/SOB/COUGH/FEVER Summary Date and Time of Date of : 07/08/21 Time of : 18:26 Summary Summary: 66-year-old female admitted on July 03 with evidence for STEMI with elevated STs by EKG and elevated troponin. Left heart catheterization described as revealing no obstructive coronary disease. Patient found to have E. coli septicemia and infected urine. Developed pericardial effusion underwent pericardiocentesis on July 04. Greater than 700 cc recovered. This was a bloody effusion. Over the past couple of days has required inotropic support, and underwent cardiac arrest in radiology department during planned CT scan of the abdomen and pelvis earlier today. Patient continued to have marginal blood pressure while on 2 vasopressors, Levophed and vasopressin. Retained clot and fluid noted. Remained acidotic with a pH of 7.2. After consultation with cardiology, there was concern that perhaps a pericardiocentesis drain, which had decreased output over the past 24 hours, may not be adequate due to the expected clot. Therefore, patient was taken operating room on July 08 and during pericardial window and removal of clot began to have progressive arrhythmias and decreasing blood pressure and increasing bloody drainage. Urgent sternotomy was performed despite open besides and aggressive chemical and fluid resuscitation, she at 1826 today. Postmortem examination revealed what appears to be a defect on the base of the heart inferiorly of 1.5 to 2 cm. Family was notified of her critical nature throughout the day and in her unfortunate expiration. I did chief counsel with family and they have visited with Ms. Del Rosario. Body will be released per their instructions. Mail Handler Equipment Operator has been notified and has cleared for her release. Additional Data Confirmation of as documented by pronouncing clinician: no pulse, no respirations, no heart sounds and pupils fixed and dilated Family: at bedside Additional persons at bedside: nursing staff Was code activated?: No (Intraoperative arrest: Resuscitation attempted per ACLS) Autopsy requested?: No Advance directives?: No Hospice patient?: No Discharge Plan Discharge Patient Disposition: Condition: Stable Prescriptions: No Action quetiapine 100 mg tablet 100 mg PO BEDTIME RF: 0 zonisamide 100 mg capsule 100 mg PO BID RF: 0 gabapentin 300 mg capsule 300 mg PO TID RF: 0 zolpidem 5 mg tablet 5 mg PO BEDTIME RF: 0 Fish Oil Capsule 1 cap PO DAILY RF: 0 duloxetine 60 mg capsule,delayed release(DR/EC) 60 mg PO BID RF: 0 potassium gluconate 595 mg (99 mg) Tablet 595 mg PO DAILY RF: 0 Vitamin B-12 1 tab PO DAILY RF: 0 albuterol sulfate 90 mcg/actuation Hfa Aerosol Inhaler 2 puff INHALATION QID PRN (Reason: Shortness Of Breath) RF: 0 Discharge Orders: Discharge Order (Routine); Ordered 07/08/21 Ordered By: Jimbo Caballero Referrals: Will Howard MD [Physician] - Coding Level of Care Code Acute Rehab Director Occupational Therapist for Chg Fwd Diagnoses Cardiogenic shock R57.0 Cardiac tamponade I31.4 Pneumonia J18.9 Acute kidney injury superimposed on CKD N17.9; N18.9 Hyponatremia E87.1 Chest pain R07.9 Hypertension I10 Hypokalemia E87.6 Sepsis A41.9
--- NOTE | 2021-07-08 20:42 | PC.NURSE ---
[facility]Saving [facility] Pt was released from [facility]. Manager Wound Care Alessandro Delatorre contacted, body released from hot stick man also. Daughter Alona at bedside. Cain Soler requested for home. Cain Soler contacted for body machine operator picker.
--- NOTE | 2021-07-08 20:43 | PM.MISC ---
Miscellaneous Note Note: I was called to the operating room by Dr. Madrigal to review the intraoperative HUSAM. Dr. Caballero is performing a pericardial window on this patient. The question was the echo density near to the right ventricle-whether it is intracardiac or not. On close examination, the echogenic mass was found to be outside the cardiac chamber. It is on the anterior wall of the atrium at the ventricle. It was found out to be a blood clot, by Dr. Caballero. No intracardiac masses were noted. Was conveyed to Dr. Caballero and also to Dr. Madrigal(anesthesiology)
[2021-07-08 20:58] LABS: ABG PCO2 65.8 mmHg (35-45)
--- NOTE | 2021-07-10 14:51 | SUR.OPER ---
RED BLOOD CELLS O POSITIVE UNIT NUMBER [id number] EXPIRATION 07/19/21, CHECKED PER DR. Ryan TAYLOR SIDER MECHANIC PRIOR TO INFUSION. RED BLOOD CELLS O POSITIVE UNIT NUMBER [id number] EXPIRATION 07/19/21, CHECKED PER DR. Ryan TAYLOR SIDER MECHANIC PRIOR TO INFUSION. RED BLOOD CELLS O POSITIVE UNIT NUMBER [id number] EXPIRATION 07/19/21, CHECKED PER DR. Ryan TAYLOR SIDER MECHANIC PRIOR TO INFUSION
== END 2021-07-08 21:34 | disposition home or self-care (01) | DRG 853 ==
LOC: ER 15:20 → CCL 16:11 → CSU 17:21 → ICU 07-04 10:21
PROVIDERS: Emergency Medicine; Hospitalist; Internal Medicine; Internal Medicine Cardiovascular Disease; Physician Assistant; Thoracic Surgery (Cardiothoracic Vascular Surgery); Admitting Provider Internal Medicine; Emergency Provider Family Medicine; Visit Provider Internal Medicine
PROC: B211YZZ Fluoroscopy of Multiple Coronary Arteries using Other Contrast (ICD-10-PCS; principal; 2021-07-03 16:00)
PROC: 0W9D0ZZ Drainage of Pericardial Cavity, Open Approach (ICD-10-PCS; CPT 33025; principal; 2021-07-08 16:30)
DX: A41.51 Sepsis due to Escherichia coli [E. coli] (principal); I21.4 Non-ST elevation (NSTEMI) myocardial infarction; J18.9 Pneumonia, unspecified organism; R57.0 Cardiogenic shock; I46.9 Cardiac arrest, cause unspecified; N17.9 Acute kidney failure, unspecified; E87.1 Hypo-osmolality and hyponatremia; I30.1 Infective pericarditis; N39.0 Urinary tract infection, site not specified; I47.1 Supraventricular tachycardia; I25.10 Atherosclerotic heart disease of native coronary artery without angina pectoris; N18.9 Chronic kidney disease, unspecified; I12.9 Hypertensive chronic kidney disease with stage 1 through stage 4 chronic kidney disease, or unspecified chronic kidney disease; F17.210 Nicotine dependence, cigarettes, uncomplicated; Z85.3 Personal history of malignant neoplasm of breast; E87.6 Hypokalemia; E86.0 Dehydration; I95.9 Hypotension, unspecified; B96.20 Unspecified Escherichia coli [E. coli] as the cause of diseases classified elsewhere
CPT/HCPCS: 33010; 36415; 36416; 36600; 71045; 80048; 80051; 80053; 81001; 82330; 82533; 82805; 82945; 82962; 83605; 83615; 83735; 84100; 84145; 84157; 84443; 84484; 85025; 85651; 85730; 86140; 86403; 86850; 86900; 86920; 87040; 87070; 87075; 87077; 87086; 87102; 87186; 87205; 87206; 87426; 87449; 87641; 88112; 88305; 88307; 89050; 93005; 93306; 93308; 93452; 93970; 94002; 94660; 94799; 96372; 96374; 96375; 97116; 97162; 99285; C1729; C1769; C1887; C1894; J0171; J0282; J0456; J0610; J0690; J0696; J0743; J1644; J1650; J1815; J1940; J2250; J2270; J2543; J3010; J3475; J3480; J3490; J7030; J7050; P9016; P9047; Q9967